=== PATIENT | male | born 1945 | race American Indian/Alaskan Native ===

== ENCOUNTER 2016-08-06 16:09 | Emergency (ER) | payer MEDICARE, MEDICAID ==
[2016-08-07] MEDS ORDERED: DECADRON IM STA (03:00)
[2016-08-07] MEDS ORDERED: TORADOL IM ONE (03:01)
--- NOTE | 2016-08-07 03:02 | Emergency Department Report ---
HPI - General Chief Complaint: Pain General Time Seen by Provider: 08/07/16 02:38 - HPI HPI: Patient here reports that he is having pain all over his joints. He said he has arthritis and he sees a pain specialist but he can no longer see that pain specialist. She was pain doctor does not take Medicare patient. Patient said he has a primary care physician. He said that he usually gets injection in his joints for his chronic arthritis. He is complaining the pain to knees, shoulders and back. Denies any injury. Pain is 10 out of 10 and feels achy. Reports that he takes oxycodone but because he doesn't have a pain doctor he does not have anymore and he would like to have some. Denies any fever or chills. Has any abdominal pain or urinary burning frequency or urgency. Denies any joint swelling or redness. ED Past Medical Hx - Past Medical History Previous Medical History?: Yes Hx Hypertension: Yes Hx Heart Attack/AMI: (coronary artery disease but no [place] or stent) Hx Liver Disease: Yes (hepatitis C) Hx Kidney Stones: Yes Hx HIV: No Additional medical history: HIGH CHOLESTEROL, "Blood clot behind heart" - Surgical History Past Surgical History?: Yes Hx Cholecystectomy: Yes Additional Surgical History: Hernia repair - Family History Family history: CAD/[place], hypertension - Social History Smoking Status: Current Every Day Smoker Substance Use Type: None - Medications Home Medications: Home Medications Medication Instructions Recorded Confirmed Last Taken Type Gabapentin 300 mg PO DAILY 07/11/13 03/06/15 03/05/15 History Oxybutynin [Ditropan] 5 mg PO DAILY 07/11/13 03/06/15 03/05/15 History Simvastatin 20 mg PO DAILY 07/11/13 03/06/15 03/05/15 History Bisacodyl [Dulcolax suppos] 10 mg RI QDAY PRN #30 supp.rect 03/06/15 Unknown Rx Clopidogrel [Plavix] 75 mg PO DAILY #30 tablet 03/06/15 Unknown Rx Indomethacin Sr (Nf) [Indocin Sr 75 mg PO DAILY #30 capsule 03/06/15 Unknown Rx (Nf)] Simvastatin [Zocor TAB] 20 mg PO QHS #30 tablet 03/06/15 Unknown Rx amLODIPine [Norvasc] 10 mg PO DAILY #30 tablet 03/06/15 Unknown Rx Oxycodone HCl/Acetaminophen 1 each PO Q8HR PRN #10 tablet 04/30/15 Unknown Rx [Percocet 10/325 mg] Lisinopril [Zestril TAB] 20 mg PO BID #60 tablet 11/20/15 Unknown Rx traMADol [Ultram] 50 mg PO Q6HR PRN #20 tablet 08/07/16 Unknown Rx ED Review of Systems ROS: Stated complaint: PAIN ALL OVER Other details as noted in HPI Comment: All other systems reviewed and negative Constitutional: denies: chills, fever Respiratory: no symptoms reported Cardiovascular: denies: chest pain, palpitations, edema, syncope Gastrointestinal: denies: abdominal pain, nausea, vomiting, diarrhea Genitourinary: denies: frequency, hematuria Musculoskeletal: back pain, arthralgia. denies: joint swelling Skin: denies: rash Neurological: denies: headache, weakness, numbness, paresthesias, confusion, abnormal gait, vertigo Physical Exam - Physical Exam Vital Signs: Vital Signs 08/06/16 18:20 Temperature 97.9 F Pulse Rate 57 L Respiratory 16 Rate Blood Pressure 129/83 O2 Sat by Pulse 100 Oximetry General: 71-year-old male well-nourished well-developed in no acute distress. Physical Exam: Head: Normocephalic atraumatic Neck: Supple, no C-spine tenderness, no tracheal deviation. Nontender to palpate. no adenopathy Eyes: Bilateral pupils equal and reactive to light, bilateral EOM intact. Bilateral sclera and conjunctiva without injection. Normal accommodation Lungs: Clear to auscultate bilaterally no rhonchi wheezes or rales. Normal work of breathing extremity; No CCE. +2 pulses. No neurovascular compromise. Cardiovascular: S1-S2, regular rate rhythm. No murmurs. Skin: clean Dry and intact no rash no lesions Psych: Normal mood and behavior MSK: Full range of motion to all extremity, no joint deformity noted. No swelling or redness noted to joints. Joints are nontender to palpate.. Back: Negative SLR bilaterally, no vertebral or paraspinal tenderness. Patient able to ambulate without any difficulties. No saddle anesthesia. Neurologic: GCS at 15, alert and oriented 3, speech is normal and fluid. Negative pronator drift. Normal reflexes. No Facial drooping. Gait is normal and bilateral hand senior storage administrator strong and equal. No motor or sensory deficit. ED Course Vital Signs 08/06/16 18:20 Temperature 97.9 F Pulse Rate 57 L Respiratory 16 Rate Blood Pressure 129/83 O2 Sat by Pulse 100 Oximetry - Reevaluation(s) Reevaluation #1: 08/07/16 03:10 Patient given Amalia 2 tablets emergency room along with Decadron 8 mg IM. I discussed with patient that I cannot give him narcotics for chronic pain and he will need to follow-up with his primary care physician to refer him to a pain doctor. ED Medical Decision Making - Medical Decision Making ED course: Patient with chronic pain from arthritis . I discussed with patient that he will need to follow-up with primary care physician to refer him to another pain specialist to manage his chronic pain from arthritis. Patient given Amalia 5/325 2 tablets by mouth in emergency room along with Decadron 8 mg IM. He was understanding of discharge instruction and discharged home with his fiance in stable condition. Prescription given for Ultram. Critical care attestation.: If time is entered above; I have spent that time in minutes in the direct care of this critically ill patient, excluding procedure time. ED Disposition Clinical Impression: Arthralgia of multiple sites, bilateral Back pain Qualifiers: Back pain location: low back pain Chronicity: chronic Back pain laterality: bilateral Sciatica presence: without sciatica Qualified Code(s): M54.5 - Low back pain; G89.29 - Other chronic pain Disposition: DISCHARGED TO HOME OR SELFCARE Is pt being admited?: No Does the pt Need Aspirin: No Condition: Stable Instructions: Chronic Back Pain (ED), Arthralgia (ED) Prescriptions: traMADol [Ultram] 50 mg PO Q6HR PRN #20 tablet PRN Reason: Pain Referrals: CHANDRIKA NICK MD [Primary Care Provider] - 2-3 Days Forms: Accompanied Note, Work/School Release Form(ED)
[2016-08-07] MEDS ORDERED: NORCO 5/325 PO ONE (03:04)
[2016-08-07 03:28] VITALS: BP 140/76
== END 2016-08-07 03:27 | disposition home or self-care (01) ==
LOC: ED 16:09
DX: M54.5 Low back pain (principal); G89.29 Other chronic pain; M25.50 Pain in unspecified joint; I10 Essential (primary) hypertension; E78.00 Pure hypercholesterolemia, unspecified; I25.10 Atherosclerotic heart disease of native coronary artery without angina pectoris; F17.200 Nicotine dependence, unspecified, uncomplicated; Z86.19 Personal history of other infectious and parasitic diseases; Z90.49 Acquired absence of other specified parts of digestive tract
CPT/HCPCS: 96372; 99282; J1100

== ENCOUNTER 2017-06-26 11:00 | Inpatient (IN) | payer MEDICARE, MEDICAID ==
--- NOTE | 2017-06-17 10:30 | Anesthesia Consultation ---
Anesthesia Consult and Med Hx Date of service: 06/17/17 - Airway Anesthetic Teeth Evaluation: Poor (not teeth at the top, denies loose teeth) ROM Head & Neck: Adequate Mental/Hyoid Distance: Adequate Mallampati Class: Class II Intubation Access Assessment: Probably Good - Pulmonary Exam CTA: Yes - Cardiac Exam Cardiac Exam: RRR - Pre-Operative Health Status ASA Pre-Surgery Classification: ASA3 Proposed Anesthetic Plan: General - Pulmonary Hx Smoking: Yes (/ PPD X 50 YRS) Hx Asthma: No Hx Respiratory Symptoms: No (hx of TB in 1988) COPD: No Hx Sleep Apnea: No (ANGELO PRE SCREEN HIGH RISK) - Cardiovascular System Hx Hypertension: Yes (SINCE 1975) Hx Heart Attack/AMI: No (had "blood clot in heart" 2011) - Central Nervous System CVA: Yes (x 2, 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
[2017-06-17 10:34] LABS: Basophils % (Auto) 0.6 % (0.0-1.8); Eosinophils % (Auto) 3.6 % (0.0-4.3); Hematocrit 37.2 % (35.5-45.6); Hemoglobin 13.1 gm/dl (11.8-15.2); Mean Corpuscular HGB Conc 35 % (32-34); Mean Corpuscular Hemoglobin 38 pg (28-32); Mean Corpuscular Volume 107 fl (84-94); Platelet Count 171 K/mm3 (140-440); Red Blood Count 3.48 M/mm3 (3.65-5.03); Red Cell Distribution Width 12.7 % (13.2-15.2); White Blood Count 7.8 K/mm3 (4.5-11.0)
[2017-06-17 10:52] LABS: Alanine Aminotransferase 13 units/L (7-56); Albumin 3.6 g/dL (3.9-5); Albumin/Globulin Ratio 1.1 %; Alkaline Phosphatase 66 units/L (35-129); Anion Gap 15 mmol/L; BUN/Creatinine Ratio 23; Blood Urea Nitrogen 21 mg/dL (9-20); Calcium 9.2 mg/dL (8.4-10.2); Carbon Dioxide 27 mmol/L (22-30); Chloride 103.3 mmol/L (98-107); Glucose 121 mg/dL (75-100); Potassium 3.6 mmol/L (3.6-5.0); Sodium 142 mmol/L (137-145); Total Protein 6.9 g/dL (6.3-8.2)
[~2017-06-26 11:00] MED LIST: ANCEF/STERILE WATER 2 GM/20 ML IV NR; NACL 0.9% 1000 ML 1,000 ML IV SCH; PEPCID PO NR
--- NOTE | 2017-06-26 13:18 | Anesthesia Day of Surgery ---
Anesthesia Day of Surgery - Day of Surgery Patient Examined: Yes Patient H&P Reviewed: Yes Patient is NPO: Yes Cardiac Clearance: Yes
[2017-06-26] MEDS ORDERED: DIPRIVAN 10 MG/ML IV ONE (13:41)
[2017-06-26] MEDS ORDERED: SUBLIMAZE ONE (13:42)
[2017-06-26] MEDS ORDERED: NEO SYNEPHRINE/NS Syringe(OR USE) IV ONE (14:00)
[2017-06-26] MEDS ORDERED: XYLOCAINE MPF 2% ONE (14:38)
[2017-06-26] MEDS ORDERED: ZOFRAN ONE (14:38)
[2017-06-26] MEDS ORDERED: AMBIEN PO PRN (14:43)
[2017-06-26] MEDS ORDERED: ZOFRAN IV PRN ×2 (14:43→15:29)
[2017-06-26] MEDS ORDERED: NORCO 5/325 PO PRN (14:43)
[2017-06-26] MEDS ORDERED: MORPHINE IV PRN (14:43)
--- NOTE | 2017-06-26 14:44 | Short Stay Summary ---
Short Stay Documentation Date of service: 06/26/17 - History H&P: obtained from office - Allergies and Medications Current Medications: Allergies aspirin Allergy (Verified 06/06/17 12:35) Vomiting Home Medications Medication Instructions Recorded Confirmed Last Taken Type Gabapentin 300 mg PO BID 07/11/13 06/26/17 06/25/17 History Clopidogrel [Plavix] 75 mg PO DAILY #30 tablet 03/06/15 06/26/17 1 Week Ago Rx ~06/19/17 Simvastatin [Zocor TAB] 20 mg PO QHS #30 tablet 03/06/15 06/26/17 06/26/17 Rx amLODIPine [Norvasc] 10 mg PO DAILY #30 tablet 03/06/15 06/26/17 06/26/17 Rx Lisinopril [Zestril TAB] 20 mg PO BID #60 tablet 11/20/15 06/26/17 06/26/17 Rx Atenolol [Tenormin] 25 mg PO DAILY 08/20/16 06/26/17 06/26/17 History ISOSORBIDE MONOnitrate [Imdur ER] 30 mg PO DAILY 08/20/16 06/26/17 06/26/17 History Lumigan 0.01% 1 drops OU QHS 08/20/16 06/26/17 06/25/17 History Mv-Mn/Iron/Folic Acid/Herb 190 1 each PO DAILY 08/20/16 06/26/17 06/25/17 History [Vitamin D3 Complete Caplet] Tamsulosin [Flomax] 0.4 mg PO QDAY 08/20/16 06/26/17 06/25/17 History traZODone [Desyrel] 100 mg PO QHS 08/20/16 06/26/17 06/25/17 History Cholecalciferol (Vitamin D3) 5,000 unit PO DAILY 06/17/17 06/26/17 06/25/17 History [Vitamin D3] Clotrimazole 1% [Lotrimin] 1 applic TP BID 06/17/17 06/26/17 06/25/17 History Oxycodone HCl [oxyCODONE 1 MG/ML 5 mg PO BID 06/17/17 06/26/17 06/25/17 History ORAL LIQ] Active Medications Cefazolin Sodium (Ancef/Sterile Water 2 Gm/20 Ml) 2 gm IV PREOP NR Stop: 06/26/17 23:59 Famotidine (Pepcid) 20 mg PO PREOP NR Stop: 06/26/17 23:59 Last Admin: 06/26/17 13:43 Dose: 20 mg Sodium Chloride (Nacl 0.9% 1000 Ml) 1,000 mls @ 75 mls/hr IV DIRECT ROBBIN Last Admin: 06/26/17 13:44 Dose: 75 mls/hr - Brief post op/procedure progress note Date of procedure: 06/26/17 Pre-op diagnosis: BPH Post-op diagnosis: same Procedure: cysto, TURP Anesthesia: GETA Surgeon: CLEO CHENEY Estimated blood loss: minimal Pathology: list (prostate chips) Specimen disposition: to lab Condition: stable - Hospital course Hospital course: [facility]vin & edmond on chart - Disposition Condition at discharge: Stable Disposition: [id number] TO HOME OR SELFCARE Short Stay Discharge Plan Follow up with: PAUL GALO MD [Primary Care Provider] - 7 Days
[2017-06-26] MEDS ORDERED: SORBITOL-MANNITOL IRRIG IR ONE (14:46)
[2017-06-26] MEDS ORDERED: NACL 0.9% IR ONE (14:46)
[2017-06-26] MEDS ORDERED: ANCEF/NS 1 GM/50 ML 1 GM/50 ML BAG IV SCH (15:00)
[2017-06-26] MEDS ORDERED: DILAUDID IV PRN (15:10)
[2017-06-26] MEDS: DILAUDID IV PRN ×2 (15:13→15:20)
[2017-06-26] MEDS ORDERED: DILAUDID ONE (15:14)
[2017-06-26] MEDS: MORPHINE IV PRN ×2 (15:26→15:43)
[2017-06-26] MEDS ORDERED: MORPHINE ONE ×2 (15:28→15:43)
[2017-06-26] MEDS ORDERED: NACL 0.9% 1,000 ML IR ONE (16:10)
--- NOTE | 2017-06-26 17:54 | Post Anesthesia Evaluation ---
- Post Anesthesia Evaluation Patient Participated: Yes Airway Patent: Yes Stable Respiratory Function: Yes Nausea/Vomiting: No Temp > 96.8F: Yes Pain Manageable: Yes Adequeate Hydration: Yes Anesthesia Complications: No
[2017-06-26] MEDS ORDERED: XALATAN 0.005% OU SCH (18:00)
--- NOTE | 2017-06-26 18:01 | Operative Report ---
PREOPERATIVE DIAGNOSIS: Bladder outlet obstruction, benign prostatic hypertrophy. POSTOPERATIVE DIAGNOSES: Bladder outlet obstruction, benign prostatic hypertrophy. PROCEDURE: Cystoscopy, bilateral retrograde pyelograms, transurethral resection of the prostate. SURGEON: Himanshu Lees MD ANESTHESIA: General. ESTIMATED BLOOD LOSS: Minimal. FLUIDS: Crystalloid. COMPLICATIONS: No complications. INDICATIONS: This patient is a 71-year-old gentleman seen in the office for bladder outlet obstruction, is placed on Flomax with some improvement of his symptoms. He underwent urodynamic testing, which revealed a peak flow of 8 mL a second consistent with obstruction. We discussed options. The patient agreed to proceed with surgical intervention. DESCRIPTION OF PROCEDURE: The patient was taken to the operative suite, placed in supine position. After adequate general anesthesia, placed in a dorsal lithotomy position, prepped and draped in a sterile fashion. Pancystourethroscopy was performed with a 22 [place] Storz cystoscope. No acute bladder pathology. His prostate displayed mild to moderate trilobar obstruction. No bladder tumors or stones could be appreciated. Using a 27[place] resectoscope with cutting and coag of 160 of 60, transurethral resection of the prostate was performed in a systematic fashion. Taken down the median lobe and the right and left lateral lobes respectively. Chips were evacuated out with the Zimbra evacuator. Adequate hemostasis was achieved. Bilateral retrograde pyelograms were obtained with an 8 [place] Napier catheter and 8 mL of contrast. No filling defects or obstruction. A 24 [place] 3-way catheter was placed. The patient tolerated the procedure well, irrigated well and was taken to recovery room in stable condition. JOB# [id number] [facility]
[2017-06-26] MEDS: LOTRIMIN TP SCH ×2 (18:15→21:47)
[2017-06-26] MEDS: ZESTRIL PO SCH (21:28)
[2017-06-26] MEDS: ROXICODONE PO SCH (21:28)
[2017-06-26] MEDS: NEURONTIN PO SCH (21:30)
[2017-06-26] MEDS: ceFAZolin 1 GM in NACL 0.9% 20 ML IV SCH (21:34)
[2017-06-26] MEDS: LACTATED RINGERS 1,000 ML IV SCH (21:51)
[2017-06-26] MEDS ORDERED: DESYREL PO SCH (22:00)
[2017-06-26] MEDS ORDERED: NON-FORMULARY (Simvastatin 20 MG) PO SCH (22:00)
[2017-06-26] MEDS ORDERED: PRAVACHOL PO SCH (22:00)
[2017-06-26] MEDS ORDERED: LUMIGAN 0.01% OU SCH (22:00)
[2017-06-26] MEDS ORDERED: OXYCODONE HCL 5 MG PO SCH (22:00)
[2017-06-26] MEDS: NACL 0.9% IR SCH (23:38)
[2017-06-27] MEDS: NACL 0.9% IR SCH ×2 (00:15→04:25)
[2017-06-27 05:54] LABS: Basophils % (Auto) 0.3 % (0.0-1.8); Eosinophils % (Auto) 3.8 % (0.0-4.3); Hematocrit 37.6 % (35.5-45.6); Hemoglobin 12.9 gm/dl (11.8-15.2); Mean Corpuscular HGB Conc 34 % (32-34); Mean Corpuscular Hemoglobin 37 pg (28-32); Mean Corpuscular Volume 107 fl (84-94); Platelet Count 169 K/mm3 (140-440); Red Blood Count 3.53 M/mm3 (3.65-5.03); Red Cell Distribution Width 12.6 % (13.2-15.2); White Blood Count 8.6 K/mm3 (4.5-11.0)
[2017-06-27] MEDS: LACTATED RINGERS 1,000 ML IV SCH (06:08)
[2017-06-27] MEDS: ceFAZolin 1 GM in NACL 0.9% 20 ML IV SCH (06:12)
[2017-06-27 06:15] LABS: Anion Gap 15 mmol/L; BUN/Creatinine Ratio 20; Blood Urea Nitrogen 18 mg/dL (9-20); Calcium 8.7 mg/dL (8.4-10.2); Carbon Dioxide 29 mmol/L (22-30); Chloride 100.8 mmol/L (98-107); Glucose 91 mg/dL (75-100); Potassium 3.6 mmol/L (3.6-5.0); Sodium 141 mmol/L (137-145)
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
--- NOTE | 2017-06-27 09:29 | Consultation ---
History of Present Illness - Reason for Consult Consult date: 06/27/17 medical management Requesting physician: CLEO CHENEY - History of Present Illness s/p TURP doing well Past History Past Medical History: CAD, hypertension, hyperlipidemia Past Surgical History: TURP Social history: no significant social history, lives with family, full code Family history: hypertension Medications and Allergies Allergies Allergy/AdvReac Type Severity Reaction Status Date / Time aspirin Allergy Vomiting Verified 06/06/17 12:35 Home Medications Medication Instructions Recorded Confirmed Last Taken Type Gabapentin 300 mg PO BID 07/11/13 06/26/17 06/25/17 History Clopidogrel [Plavix] 75 mg PO DAILY #30 tablet 03/06/15 06/26/17 1 Week Ago Rx ~06/19/17 Simvastatin [Zocor TAB] 20 mg PO QHS #30 tablet 03/06/15 06/26/17 06/26/17 Rx amLODIPine [Norvasc] 10 mg PO DAILY #30 tablet 03/06/15 06/26/17 06/26/17 Rx Lisinopril [Zestril TAB] 20 mg PO BID #60 tablet 11/20/15 06/26/17 06/26/17 Rx Atenolol [Tenormin] 25 mg PO DAILY 08/20/16 06/26/17 06/26/17 History ISOSORBIDE MONOnitrate [Imdur ER] 30 mg PO DAILY 08/20/16 06/26/17 06/26/17 History Lumigan 0.01% 1 drops OU QHS 08/20/16 06/26/17 06/25/17 History Mv-Mn/Iron/Folic Acid/Herb 190 1 each PO DAILY 08/20/16 06/26/17 06/25/17 History [Vitamin D3 Complete Caplet] Tamsulosin [Flomax] 0.4 mg PO QDAY 08/20/16 06/26/17 06/25/17 History traZODone [Desyrel] 100 mg PO QHS 08/20/16 06/26/17 06/25/17 History Cholecalciferol (Vitamin D3) 5,000 unit PO DAILY 06/17/17 06/26/17 06/25/17 History [Vitamin D3] Clotrimazole 1% [Lotrimin] 1 applic TP BID 06/17/17 06/26/1717 History Oxycodone HCl [oxyCODONE 1 MG/ML 5 mg PO BID 06/17/17 06/26/17 06/25/17 History ORAL LIQ] Active Meds: Active Medications Acetaminophen/Hydrocodone Bitart ([place] 5/325) 2 each PO Q4H PRN PRN Reason: Pain, Moderate (4-6) Amlodipine Besylate (Norvasc) 10 mg PO DAILY [facility] Atenolol (Tenormin) 25 mg PO DAILY [facility] Cholecalciferol (Vitamin D3) 5,000 unit PO QDAY [facility] Clotrimazole (Lotrimin) 1 applic TP BID [facility] Last Admin: 06/26/17 21:47 Dose: Not Given Gabapentin (Neurontin) 300 mg PO BID [facility] Last Admin: 06/26/17 21:30 Dose: 300 mg Sodium Chloride (Nacl 0.9% 1000 Ml) 1,000 mls @ 75 mls/hr IV DIRECT [facility] Last Admin: 06/26/17 13:44 Dose: 75 mls/hr Lactated Ringer's (Lactated Ringers) 1,000 mls @ 100 mls/hr IV DIRECT [facility] Last Admin: 06/27/17 06:08 Dose: 100 mls/hr Isosorbide Mononitrate (Imdur) 30 mg PO DAILY [facility] Latanoprost (Xalatan 0.005%) 1 drops OU QPM [facility] Last Admin: 06/26/17 18:14 Dose: Not Given Lisinopril (Zestril) 20 mg PO BID [facility] Last Admin: 06/26/17 21:28 Dose: 20 mg Morphine Sulfate (Morphine) 2 mg IV Q4H PRN PRN Reason: Pain, Moderate (4-6) Morphine Sulfate (Morphine) 4 mg IV Q10MIN PRN PRN Reason: Pain , Severe (7-10) Last Admin: 06/26/17 15:43 Dose: 4 mg Ondansetron HCl (Zofran) 4 mg IV Q8H PRN PRN Reason: Nausea And Vomiting Ondansetron HCl (Zofran) 4 mg IV ONCE PRN PRN Reason: Nausea And Vomiting Oxycodone HCl (Roxicodone) 5 mg PO BID [facility] Last Admin: 06/26/17 21:28 Dose: 5 mg Pravastatin Sodium (Pravachol) 40 mg PO QHS [facility] Last Admin: 06/26/17 21:30 Dose: 40 mg Sodium Chloride (Nacl 0.9%) 2,000 ml IR DIRECT [facility] Last Admin: 06/27/17 04:25 Dose: 2,000 ml Trazodone HCl (Desyrel) 100 mg PO QHS [facility] Last Admin: 06/26/17 21:30 Dose: 100 mg Zolpidem Tartrate (Ambien) 5 mg PO QHS PRN PRN Reason: Sleep Review of Systems All systems: negative Exam - Constitutional Vitals: Temp Pulse Resp BP Pulse Ox 99.1 F 70 18 105/57 96 06/27/17 08:01 06/27/17 08:01 06/27/17 08:01 06/27/17 08:01 06/27/17 08:01 General appearance: Present: no acute distress, well-nourished - EENT Eyes: Present: PERRL ENT: hearing intact, clear oral mucosa - Neck Neck: Present: supple, normal ROM - Respiratory Respiratory effort: normal Respiratory: bilateral: CTA - Cardiovascular Heart Sounds: Present: S1 & S2. Absent: rub, click - Extremities Extremities: pulses symmetrical, No edema Peripheral Pulses: within normal limits - Abdominal General gastrointestinal: Present: soft, non-tender, non-distended, normal bowel sounds Male genitourinary: Present: normal - Integumentary Integumentary: Present: clear, warm, dry - Musculoskeletal Musculoskeletal: gait normal, strength equal bilaterally - Psychiatric Psychiatric: appropriate mood/affect, intact judgment & insight - Neurologic Neurologic: CNII-XII intact, moves all extremities Results - Labs CBC & Chem 7: 06/27/17 04:26 06/27/17 04:26 Labs: Abnormal lab results 06/27/17 Range/Units 04:26 RBC 3.53 L (3.65-5.03) M/mm3 MCV 107 H (84-94) fl MCH 37 H (28-32) pg RDW 12.6 L (13.2-15.2) % Person % (Auto) 11.4 H (0.0-7.3) % Person # 1.0 H (0.0-0.8) K/mm3 Assessment and Plan - Patient Problems (1) S/P TURP Current Visit: Yes Status: Acute Plan to address problem: post op doing well (2) CAD (coronary artery disease), [place] coronary artery Current Visit: No Status: Chronic Qualifiers: [place] vs. transplanted heart: [place] heart Associated angina: without angina Qualified Code(s): I25.10 - Atherosclerotic heart disease of [place] coronary artery without angina pectoris Plan to address problem: Cont plavix and Isosorbide (3) HLD (hyperlipidemia) Current Visit: No Status: Chronic Qualifiers: Hyperlipidemia type: mixed hyperlipidemia Qualified Code(s): E78.2 - Mixed hyperlipidemia Plan to address problem: Cont statins (4) HTN (hypertension) Current Visit: Yes Status: Chronic Qualifiers: Hypertension type: essential hypertension Qualified Code(s): I10 - Essential (primary) hypertension Plan to address problem: Cont antihypertensives
[2017-06-27] MEDS: NEURONTIN PO SCH (09:59)
[2017-06-27] MEDS: LOTRIMIN TP SCH (09:59)
[2017-06-27] MEDS ORDERED: VITAMIN D3 PO SCH (10:00)
[2017-06-27] MEDS ORDERED: NORVASC PO SCH (10:00)
[2017-06-27] MEDS ORDERED: HERB PO SCH (10:00)
[2017-06-27] MEDS ORDERED: NON-FORMULARY (Cholecalciferol (Vitamin D3) [Vitamin D3] 5,000 UNIT) PO SCH (10:00)
[2017-06-27] MEDS ORDERED: TENORMIN PO SCH (10:00)
[2017-06-27] MEDS ORDERED: FOLIC ACID PO SCH (10:00)
[2017-06-27] MEDS ORDERED: MV MN PO SCH (10:00)
[2017-06-27] MEDS ORDERED: IRON PO SCH (10:00)
[2017-06-27] MEDS ORDERED: IMDUR PO SCH (10:00)
[2017-06-27] MEDS: ZESTRIL PO SCH (10:01)
[2017-06-27] MEDS: ROXICODONE PO SCH (10:01)
--- NOTE | 2017-06-27 13:03 | Progress Note ---
Assessment and Plan urine clear draining well home with catheter Subjective Date of service: 06/27/17 Principal diagnosis: BPH Objective - Constitutional Vitals: Vital Signs - 12hr 06/27/17 06/27/17 06/27/17 04:56 08:01 09:59 Temperature 97.2 F L 99.1 F Pulse Rate 73 70 67 Respiratory 16 18 Rate Blood Pressure 105/57 105/57 Blood Pressure 104/61 [Left] O2 Sat by Pulse 100 96 Oximetry General appearance: Present: no acute distress - Respiratory Respiratory effort: normal Extremities: no ischemia - Gastrointestinal General gastrointestinal: Present: soft, non-tender - Labs CBC & Chem 7: 06/27/17 04:26 06/27/17 04:26 Labs: Abnormal lab results 06/27/17 Range/Units 04:26 RBC 3.53 L (3.65-5.03) M/mm3 MCV 107 H (84-94) fl MCH 37 H (28-32) pg RDW 12.6 L (13.2-15.2) % [place] % (Auto) 11.4 H (0.0-7.3) % [place] # 1.0 H (0.0-0.8) K/mm3
[2017-06-27 13:04] VITALS: BP 103/52
--- NOTE | 2017-06-27 13:04 | Discharge Summary ---
Short Stay Discharge Plan Activity: other (no straining ) Weight Bearing Status: Full Weight Bearing Diet: regular, low fat, low cholesterol, low salt Special Instructions: other (inc fluids ) Durable Medical Equipment Needed Upon Discharge: other (teach zapata care ) Follow up with: PAUL GALO MD [Primary Care Provider] - 7 Days CLEO CHENEY MD [Staff Physician] - 7 Days
== END 2017-06-27 15:36 | disposition home or self-care (01) | DRG 713 ==
LOC: OR 11:00 → 3B-SURG 14:44
PROVIDERS: ADMIT Urology; ATTEND Urology
PROC: 0VT08ZZ Resection of Prostate, Via Natural or Artificial Opening Endoscopic (ICD-10-PCS; principal; 2017-06-26)
PROC: BT141ZZ Fluoroscopy of Kidneys, Ureters and Bladder using Low Osmolar Contrast (ICD-10-PCS; 2017-06-26)
DX: N40.1 Benign prostatic hyperplasia with lower urinary tract symptoms (principal); N13.8 Other obstructive and reflux uropathy; Z88.6 Allergy status to analgesic agent; Z87.891 Personal history of nicotine dependence; Z86.73 Personal history of transient ischemic attack (TIA), and cerebral infarction without residual deficits; K21.9 Gastro-esophageal reflux disease without esophagitis; B19.20 Unspecified viral hepatitis C without hepatic coma; H40.9 Unspecified glaucoma; Z79.899 Other long term (current) drug therapy; K74.60 Unspecified cirrhosis of liver; I25.10 Atherosclerotic heart disease of native coronary artery without angina pectoris; E78.5 Hyperlipidemia, unspecified; I10 Essential (primary) hypertension; Z82.49 Family history of ischemic heart disease and other diseases of the circulatory system
CPT/HCPCS: 36415; 74420; 80048; 80053; 85025; 85610; 85730; 86850; 86900; 86901; A4217; A9270-GY; J0690; J1170; J2270; J2370; J2405; J2704; J3010; J7030; J7120; Q9967

== ENCOUNTER 2017-06-28 06:16 | Emergency (ER) | payer MEDICARE ==
[2017-06-28] MEDS ORDERED: ZOFRAN ODT PO ONE (07:41)
[2017-06-28] MEDS ORDERED: MORPHINE IM ONE (07:41)
[2017-06-28 08:49] LABS: Bilirubin,Urine NEG (Negative); Blood,Urine LG (Negative); Ketones,Urine NEG (Negative); Leukocyte Esterase,Urine SM (Negative); Nitrite,Urine NEG (Negative)
--- NOTE | 2017-06-28 09:47 | Emergency Department Report ---
HPI - General Chief Complaint: Urogenital-Male Time Seen by Provider: 06/28/17 07:24 - HPI HPI: The patient is a 71-year-old male who presents for evaluation of lower abdominal and pelvic pain. The patient has a history of TURP procedure yesterday and Baker catheter placement. He complains of moderate in severity, 5 /10 pain for the past one day, constant, cramping and pressure-like in quality. He also reports constant mild hematuria since the procedure. The patient denies fever, chills, night sweats, diarrhea, blood in the stool, dark tarry stool, dysuria, flank pain, genital discharge, inability to pass flatus. ED Past Medical Hx - Past Medical History Previous Medical History?: Yes Hx Hypertension: Yes Hx Heart Attack/AMI: No (had "blood clot in heart" 2011) Hx Deep Vein Thrombosis: No Hx GERD: Yes Hx Liver Disease: Yes (hepatitis C) Hx Renal Disease: No (stones, BPH) Hx Arthritis: Yes Hx Kidney Stones: Yes Hx Asthma: No Hx COPD: No Hx Tuberculosis: Yes (POSITIVE SKIN TEST,RECEIVED [place] 1988) Hx HIV: No Additional medical history: HIGH CHOLESTEROL, "Blood clot behind heart" - Surgical History Past Surgical History?: Yes Hx Cholecystectomy: Yes Additional Surgical History: Hernia repair - Social History Smoking Status: Current Every Day Smoker Substance Use Type: None - Medications Home Medications: Home Medications Medication Instructions Recorded Confirmed Last Taken Type Gabapentin 300 mg PO BID 07/11/13 06/26/17 06/25/17 History Clopidogrel [Plavix] 75 mg PO DAILY #30 tablet 03/06/15 06/26/17 1 Week Ago Rx ~06/19/17 Simvastatin [Zocor TAB] 20 mg PO QHS #30 tablet 03/06/15 06/26/17 06/26/17 Rx amLODIPine [Norvasc] 10 mg PO DAILY #30 tablet 03/06/15 06/26/17 06/26/17 Rx Lisinopril [Zestril TAB] 20 mg PO BID #60 tablet 11/20/15 06/26/17 06/26/17 Rx Atenolol [Tenormin] 25 mg PO DAILY 08/20/16 06/26/17 06/26/17 History ISOSORBIDE MONOnitrate [Imdur ER] 30 mg PO DAILY 08/20/16 06/26/17 06/26/17 History Lumigan 0.01% 1 drops OU QHS 08/20/16 06/26/17 06/25/17 History Mv-Mn/Iron/Folic Acid/Herb 190 1 each PO DAILY 08/20/16 06/26/17 06/25/17 History [Vitamin D3 Complete Caplet] Tamsulosin [Flomax] 0.4 mg PO QDAY 08/20/16 06/26/17 06/25/17 History traZODone [Desyrel] 100 mg PO QHS 08/20/16 06/26/17 06/25/17 History Cholecalciferol (Vitamin D3) 5,000 unit PO DAILY 06/17/17 06/26/17 06/25/17 History [Vitamin D3] Clotrimazole 1% [Lotrimin] 1 applic TP BID 06/17/17 06/26/17 06/25/17 History Oxycodone HCl [oxyCODONE 1 MG/ML 5 mg PO BID 06/17/17 06/26/17 06/25/17 History ORAL LIQ] HYDROcodone/APAP 7.5-325 [[place] 1 each PO Q8HR PRN #10 tablet 06/28/17 Unknown Rx 7.5-325 mg TAB] ED Review of Systems ROS: Stated complaint: PAIN FROM SURGERY SITE Other details as noted in HPI Constitutional: denies: fever ENT: denies: throat or neck pain Respiratory: denies: cough, shortness of breath Cardiovascular: denies: chest pain Endocrine: denies unexplained weight loss or gain Gastrointestinal: reports abdominal pain, nausea Genitourinary: reports hematuria denies: dysuria Musculoskeletal: denies: leg swelling Skin: denies: rash Neurological: denies: headache Hematological/Lymphatic: denies: easy bleeding or easy bruising Psych: denies sadness or hopelessness Physical Exam - Physical Exam Vital Signs: Vital Signs 06/28/17 06/28/17 06/28/17 06:28 07:28 07:41 Temperature 98.3 F 98.2 F Pulse Rate 97 H 96 H Respiratory 18 18 22 Rate Blood Pressure 113/73 Blood Pressure 125/68 [Left] O2 Sat by Pulse 96 97 97 Oximetry Physical Exam: General: well-nourished, well-developed, no acute distress Head: Normocephalic, atraumatic Eyes: normal sclera ENT: Mucous membranes are pink and moist Neck: trachea midline, neck supple, No neck stiffness, no cervical adenopathy Respiratory: Breath sounds equal bilaterally, no wheezing, rales, or rhonchi Cardio: S1 and S2 present, no murmurs, rubs, gallops, capillary refill is brisk Abdomen: Normoactive bowel sounds, soft abdomen, suprapubic tenderness to palpation present, no rigidity, no guarding or rebound tenderness Musc: No pitting edema Skin: No rash Neuro: no facial drooping, normal speech Psych: Normal affect ED Course Vital Signs 06/28/17 06/28/17 06/28/17 06:28 07:28 07:41 Temperature 98.3 F 98.2 F Pulse Rate 97 H 96 H Respiratory 18 18 22 Rate Blood Pressure 113/73 Blood Pressure 125/68 [Left] O2 Sat by Pulse 96 97 97 Oximetry ED Medical Decision Making - Medical Decision Making The patient was seen and examined by myself. The patient is placed on a night monitor and continuous pulse ox. On initial evaluation, the patient was found to be in no distress. Evaluation orders are placed. The patient is given pain medicine. Lab results were non-concerning including urinalysis negative for findings concerning for urinary tract infection. The patient was reevaluated and reported that their symptoms were markedly improved. The patient is stable for discharge with outpatient follow-up. The patient is given follow-up and return instructions. The patient expressed understanding and agreed with the plan. The patient is discharged in stable condition. Critical care attestation.: If time is entered above; I have spent that time in minutes in the direct care of this critically ill patient, excluding procedure time. ED Disposition Clinical Impression: Hematuria, Acute suprapubic pain, Pelvic pain in male Disposition: - TO HOME OR SELFCARE Is pt being admited?: No Does the pt Need Aspirin: No Condition: Stable Instructions: Benign Prostatic Hypertrophy (ED), Baker Catheter Placement and Care (ED), Acute Hematuria (ED) Prescriptions: HYDROcodone/APAP 7.5-325 [[place] 7.5-325 mg TAB] 1 each PO Q8HR PRN #10 tablet PRN Reason: Pain Referrals: LONI BRANDON MD [Staff Physician] - 3-5 Days [facility] [Outside] - 3-5 Days Time of Disposition: 09:47
[2017-06-28 10:10] VITALS: BP 120/70
== END 2017-06-28 10:10 | disposition home or self-care (01) ==
LOC: ED 06:16
DX: R31.9 Hematuria, unspecified (principal); R10.30 Lower abdominal pain, unspecified; F17.200 Nicotine dependence, unspecified, uncomplicated; K21.9 Gastro-esophageal reflux disease without esophagitis; I10 Essential (primary) hypertension; Z86.19 Personal history of other infectious and parasitic diseases; N40.0 Benign prostatic hyperplasia without lower urinary tract symptoms; Z88.6 Allergy status to analgesic agent
CPT/HCPCS: 81001; 87086; 96372; 99284; J2270

== ENCOUNTER 2017-10-04 09:38 | Outpatient (CLI) | payer MEDICARE ==
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
== END 2017-10-04 09:39 | disposition home or self-care (01) ==
LOC: CT 09:38
PROVIDERS: ATTEND Urology
DX: M41.86 Other forms of scoliosis, lumbar region (principal); M47.896 Other spondylosis, lumbar region; M16.0 Bilateral primary osteoarthritis of hip; J98.11 Atelectasis; I25.10 Atherosclerotic heart disease of native coronary artery without angina pectoris; J84.10 Pulmonary fibrosis, unspecified; I70.0 Atherosclerosis of aorta; Z90.49 Acquired absence of other specified parts of digestive tract
CPT/HCPCS: 74176

== ENCOUNTER 2017-10-25 10:48 | Outpatient (CLI) | payer MEDICARE ==
--- NOTE | 2017-10-25 13:44 | XRay Report ---
RIGHT KNEE RADIOGRAPHS INDICATION: Chronic pain. COMPARISON: 04/30/2015. FINDINGS: AP, lateral and oblique right knee radiographs, 5 images again demonstrate intact articulation with medial and patellofemoral compartment narrowing and degenerative spurring. Mild superior and inferior patellar articular pole spurring as well. Superior patellar enthesophyte. No large suprapatellar effusion at this time. Atherosclerotic vascular calcifications posteriorly. CONCLUSION: Right knee osteoarthritic changes again noted, as described. Thank you for the opportunity to participate in this patient's care.
--- NOTE | 2017-10-26 00:10 | XRay Report ---
FINAL REPORT PROCEDURE: XR SHOULDER BILAT 2+V TECHNIQUE: BILATERAL shoulder radiographs including AP views in internal and external rotation. HISTORY: CHRONIC PAIN COMPARISON: No prior studies are available for comparison. FINDINGS: Fracture(s) and/or Dislocation(s): No evidence of acute fracture or dislocation. Joint space(s): Moderate narrowing of the joint spaces bilaterally. Mild spur formation off the acromioclavicular joint and the glenoid fossa bilaterally. Soft tissues: Normal. Bone mineralization: Normal. Foreign bodies: None. IMPRESSION: There is no evidence of an acute fracture of the shoulders. Mild bilateral shoulder arthritis.
== END 2017-10-25 10:49 | disposition home or self-care (01) ==
LOC: XRAY 10:48
DX: M19.012 Primary osteoarthritis, left shoulder (principal); M19.011 Primary osteoarthritis, right shoulder; M17.11 Unilateral primary osteoarthritis, right knee; M25.812 Other specified joint disorders, left shoulder; M25.811 Other specified joint disorders, right shoulder; F11.90 Opioid use, unspecified, uncomplicated; M54.9 Dorsalgia, unspecified; F17.200 Nicotine dependence, unspecified, uncomplicated; E78.00 Pure hypercholesterolemia, unspecified; I10 Essential (primary) hypertension

== ENCOUNTER 2017-12-11 13:23 | Outpatient (CLI) | payer MEDICARE ==
--- NOTE | 2017-12-11 14:29 | XRay Report ---
Lumbar spine 2 views: History: Chronic pain. Findings: Normal height of vertebral bodies. Decrease in height of intravertebral disc spaces. Sclerotic articular surfaces with peripheral osteophytes suggesting degenerative changes. No fracture. No paravertebral mass. Impression: Degenerative lumbar spine.
--- NOTE | 2017-12-11 14:31 | XRay Report ---
Bilateral shoulder: History: Chronic pain. Findings: Severe arthritic changes a.c. joint bilaterally with [id number] arthritic changes glenohumeral joint bilaterally. No fracture or dislocation. There is faint calcification noted adjacent to the posterior greater tuberosity right humerus. Decrease in acromiohumeral space bilaterally. Impression: Bilateral arthritic changes a.c. joint and glenohumeral joint with decrease in acromiohumeral space probably related to chronic impingement and arthritis.
--- NOTE | 2017-12-11 14:32 | XRay Report ---
Right knee 3 views: History: Chronic pain. Findings: Narrowing of the medial and patellofemoral compartment knee joint. Sclerotic articular surfaces with peripheral osteophytes suggesting degenerative changes. Spur anterior patella. No joint effusion. Impression: Severe degenerative changes medial and patellofemoral compartment knee joint.
== END 2017-12-11 13:24 | disposition home or self-care (01) ==
LOC: XRAY 13:23
PROVIDERS: ATTEND Pain Medicine Interventional Pain Medicine
DX: Z09 Encounter for follow-up examination after completed treatment for conditions other than malignant neoplasm (principal); M47.896 Other spondylosis, lumbar region; M17.11 Unilateral primary osteoarthritis, right knee; M76.51 Patellar tendinitis, right knee; M19.012 Primary osteoarthritis, left shoulder; M19.011 Primary osteoarthritis, right shoulder; F11.90 Opioid use, unspecified, uncomplicated
CPT/HCPCS: 72100

== ENCOUNTER 2018-08-03 04:30 | Emergency (ER) | payer MEDICARE ==
[2018-08-03 05:41] VITALS: BP 94/53
== END 2018-08-03 06:30 | disposition left against medical advice (07) ==
LOC: ED 04:30
DX: R07.89 Other chest pain (principal); Z53.21 Procedure and treatment not carried out due to patient leaving prior to being seen by health care provider
CPT/HCPCS: 93005; 93010

== ENCOUNTER 2018-09-21 07:45 | Emergency (ER) | payer MEDICARE ==
[2018-09-21] MEDS ORDERED: NACL 0.9% 1000 ML 1,000 ML IV ONE ×2 (08:08→10:34)
[2018-09-21] MEDS ORDERED: ZOFRAN IV ONE (08:08)
--- NOTE | 2018-09-21 08:14 | Emergency Department Report ---
ED General Adult HPI - General Chief complaint: Weakness Stated complaint: WEAKNESS Time Seen by Provider: 09/21/18 07:58 Source: EMS Mode of arrival: Stretcher Limitations: Physical Limitation - History of Present Illness Initial comments: Patient is 73 years old male with history of hypertension, coronary artery disease, GERD and arthritis. Patient presented to the ER via EMS stating that he is feeling generalized weakness started this morning. Patient stated that he took extra dose of his Neurontin. She stated that he usually take one tablet t hat he took 2 tablets last night. EMS reported that initial blood pressure was 88/46. Patient denied any chest pain, shortness of breath, abdominal pain, nausea or vomiting. Severity scale (0 -10): 0 - Related Data Home Medications Medication Instructions Recorded Confirmed Last Taken Gabapentin 300 mg PO BID 07/11/13 09/21/18 09/20/18 Atenolol [Tenormin] 25 mg PO DAILY 08/20/16 09/21/18 09/20/18 ISOSORBIDE MONOnitrate [Imdur ER] 30 mg PO DAILY 08/20/16 09/21/18 09/20/18 Lumigan 0.01% 1 drops OU QHS 08/20/16 09/21/18 06/25/17 traZODone [Desyrel] 100 mg PO QHS 08/20/16 09/21/18 09/20/18 Cholecalciferol (Vitamin D3) 5,000 unit PO DAILY 06/17/17 09/21/18 09/20/18 [Vitamin D3] Clotrimazole 1% [Lotrimin] 1 applic TP BID 06/17/17 09/21/18 06/25/17 Losartan-Hctz 50-12.5 mg Tab 1 tab PO DAILY 09/21/18 09/21/18 09/20/18 amLODIPine [Norvasc] 5 mg PO DAILY 09/21/18 09/21/18 09/20/18 oxyCODONE /ACETAMINOPHEN 10 mg PO PRN 09/21/18 09/21/18 Unknown Previous Rx's Medication Instructions Recorded Last Taken Type Clopidogrel [Plavix] 75 mg PO DAILY #30 tablet 03/06/15 09/20/18 Rx Simvastatin (Nf) [Zocor TAB] 20 mg PO QHS #30 tablet 03/06/15 09/20/18 Rx Allergies Allergy/AdvReac Type Severity Reaction Status Date / Time aspirin Allergy Vomiting Verified 06/06/17 12:35 ED Review of Systems ROS: Stated complaint: WEAKNESS Other details as noted in HPI Comment: All other systems reviewed and negative Constitutional: denies: chills, fever Respiratory: denies: cough, orthopnea, shortness of breath, SOB with exertion, SOB at rest, wheezing Cardiovascular: denies: chest pain, palpitations Gastrointestinal: denies: abdominal pain, nausea, vomiting, diarrhea, constipat ion, hematemesis, melena, hematochezia Musculoskeletal: denies: back pain Neurological: weakness (generalized). denies: headache, numbness, paresthesias, confusion, abnormal gait ED Past Medical Hx - Past Medical History Previous Medical History?: Yes Hx Hypertension: Yes Hx Heart Attack/AMI: No (had "blood clot in heart" 2011) Hx Deep Vein Thrombosis: No Hx GERD: Yes Hx Liver Disease: Yes (hepatitis C) Hx Renal Disease: No (stones, BPH) Hx Arthritis: Yes Hx Kidney Stones: Yes Hx Asthma: No Hx COPD: No Hx Tuberculosis: Yes (POSITIVE SKIN TEST,RECEIVED [place] 1988) Hx HIV: No Additional medical history: HIGH CHOLESTEROL, "Blood clot behind heart" - Surgical History Past Surgical History?: Yes Hx Cholecystectomy: Yes Additional Surgical History: Hernia repair - Social History Smoking Status: Current Every Day Smoker Substance Use Type: None - Medications Home Medications: Home Medications Medication Instructions Recorded Confirmed Last Taken Type Gabapentin 300 mg PO BID 07/11/13 09/21/18 09/20/18 History Clopidogrel [Plavix] 75 mg PO DAILY #30 tablet 03/06/15 09/21/18 09/20/18 Rx Simvastatin (Nf) [Zocor TAB] 20 mg PO QHS #30 tablet 03/06/15 09/21/18 09/20/18 Rx Atenolol [Tenormin] 25 mg PO DAILY 08/20/16 09/21/18 09/20/18 History ISOSORBIDE MONOnitrate [Imdur ER] 30 mg PO DAILY 08/20/16 09/21/18 09/20/18 History Lumigan 0.01% 1 drops OU QHS 08/20/16 09/21/18 06/25/17 History traZODone [Desyrel] 100 mg PO QHS 08/20/16 09/21/18 09/20/18 History Cholecalciferol (Vitamin D3) 5,000 unit PO DAILY 06/17/17 09/21/18 09/20/18 H istory [Vitamin D3] Clotrimazole 1% [Lotrimin] 1 applic TP BID 06/17/17 09/21/18 06/25/17 History Losartan-Hctz 50-12.5 mg Tab 1 tab PO DAILY 09/21/18 09/21/18 09/20/18 History amLODIPine [Norvasc] 5 mg PO DAILY 09/21/18 09/21/18 09/20/18 History oxyCODONE /ACETAMINOPHEN 10 mg PO PRN 09/21/18 09/21/18 Unknown History ED Physical Exam - General Limitations: No Limitations, Physical Limitation General appearance: alert, in no apparent distress - Head Head exam: Present: atraumatic, normocephalic, normal inspection - Eye Eye exam: Present: normal appearance, PERRL - ENT ENT exam: Present: normal exam, normal orophraynx, mucous membranes moist - Neck Neck exam: Present: normal inspection, full ROM. Absent: tenderness, meningismus, lymphadenopathy, thyromegaly - Respiratory Respiratory exam: Present: normal lung sounds bilaterally. Absent: respiratory distress, wheezes, rales, rhonchi, chest wall tenderness, accessory muscle use, decreased breath sounds, prolonged expiratory - Cardiovascular Cardiovascular Exam: Present: regular rate, normal rhythm, normal heart sounds - GI/Abdominal GI/Abdominal exam: Present: soft, normal bowel sounds. Absent: distended, tenderness, guarding, rebound, rigid, organomegaly, mass, bruit, pulsatile mass, hernia - Extremities Exam Extremities exam: Present: normal inspection, full ROM, normal capillary refill. Absent: pedal edema, calf tenderness - Back Exam Back exam: Present: normal inspection, full ROM. Absent: tenderness, CVA tenderness (R), CVA tenderness (L), muscle spasm, paraspinal tenderness - Neurological Exam Neurological exam: Present: alert, oriented X3, CN II-XII intact, normal gait, reflexes normal - Skin Skin exam: Present: warm, intact, normal color ED Course Vital Signs 09/21/18 09/21/18 09/21/18 07:44 07:45 07:46 Temperature Pulse Rate 56 L Respiratory Rate Blood Pressure 87/52 Blood Pressure 87/52 [Right] O2 Sat by Pulse 96 97 Oximetry 09/21/18 09/21/18 09/21/18 07:50 08:00 08:15 Temperature 97.4 F L Pulse Rate 56 L Respiratory 16 Rate Blood Pressure 104/61 95/59 95/59 Blood Pressure [Right] O2 Sat by Pulse 96 95 96 Oximetry 09/21/18 09/21/18 09/21/18 08:40 08:41 08:49 Temperature Pulse Rate 69 Respiratory 16 14 Rate Blood Pressure 89/59 Blood Pressure [Right] O2 Sat by Pulse Oximetry 09/21/18 09/21/18 09/21/18 09:01 09:15 09:31 Temperature Pulse Rate 74 61 67 Respiratory 15 11 L 10 L Rate Blood Pressure 105/55 105/55 112/65 Blood Pressure [Right] O2 Sat by Pulse Oximetry 09/21/18 09/21/18 09/21/18 09:36 09:45 10:00 Temperature Pulse Rate 68 66 Respiratory 16 12 15 Rate Blood Pressure 112/65 103/55 Blood Pressure [Right] O2 Sat by Pulse 94 93 90 Oximetry 09/21/18 09/21/18 09/21/18 10:15 10:30 10:45 Temperature Pulse Rate 68 66 65 Respiratory 13 13 14 Rate Blood Pressure 103/55 93/53 93/53 Blood Pressure [Right] O2 Sat by Pulse 93 89 95 Oximetry 09/21/18 09/21/18 09/21/18 11:01 11:15 11:30 Temperature Pulse Rate 70 67 77 Respiratory 13 13 13 Rate Blood Pressure 107/70 107/70 115/70 Blood Pressure [Right] O2 Sat by Pulse 93 97 93 Oximetry ED Medical Decision Making - Lab Data Result diagrams: 09/21/18 08:34 09/21/18 08:34 - EKG Data -: EKG Interpreted by Mt EKG shows normal: sinus rhythm Rate: normal - EKG Data Interpretation: no acute changes - Radiology Data Radiology results: report reviewed CT brain is negative for acute finding. - Medical Decision Making Patient is 73 years old male with history of hypertension, coronary artery disease, GERD and arthritis. Patient presented to the ER via EMS stating that he is feeling generalized weakness started this morning. Patient stated that he took extra dose of his Neurontin 600 mg. He stated that he usually take one tablet that he took 2 tablets last night. EMS reported that initial blood pre ssure was 88/46. Patient denied any chest pain, shortness of breath, abdominal pain, nausea or vomiting. Patient received 2 L of fluids. Patient stated that he is feeling much better. No dizziness. Patient is still denying any chest pain or shortness of breath. CT brain is negative for acute findings. I believe patient's symptoms is most likely related to a side effect of extra dose of his Neurontin. I counseled patient on taking his prescription as prescribed. I advised the patient to follow up with his primary care physician in the next 2-3 days and to return to the ER if his symptoms are not improved. Critical Care Time: Yes Critical care time in (mins) excluding proc time.: 30 Critical care attestation.: If time is entered above; I have spent that time in minutes in the direct care of this critically ill patient, excluding procedure time. ED Disposition Clinical Impression: Dizziness, Hypotension Disposition: DC-01 TO HOME OR SELFCARE Is pt being admited?: No Condition: Stable Instructions: Hypotension (ED), Dizziness (ED) Referrals: PAUL GALO MD [Primary Care Provider] - 3-5 Days
[2018-09-21 09:02] LABS: Basophils % (Auto) 0.4 % (0.0-1.8); Eosinophils # (Auto) 0.1 K/mm3 (0.0-0.4); Eosinophils % (Auto) 0.9 % (0.0-4.3); Hematocrit 40.4 % (35.5-45.6); Hemoglobin 13.8 gm/dl (11.8-15.2); Lymphocytes # (Auto) 1.9 K/mm3 (1.2-5.4); Lymphocytes % (Auto) 22.4 % (13.4-35.0); Mean Corpuscular HGB Conc 34 % (32-34); Mean Corpuscular Volume 108 fl (84-94); Monocytes # (Auto) 1.1 K/mm3 (0.0-0.8); Monocytes % (Auto) 13.2 % (0.0-7.3); Platelet Count 184 K/mm3 (140-440); Red Blood Count 3.75 M/mm3 (3.65-5.03); Red Cell Distribution Width 12.8 % (13.2-15.2)
--- NOTE | 2018-09-21 09:02 | Cat Scan Report ---
FINAL REPORT EXAM: CT HEAD/BRAIN WO CON HISTORY: dizziness TECHNIQUE: CT of the Head without IV contrast. PRIORS: None currently available. FINDINGS: There is no evidence for acute ischemia. There is no hemorrhage. There is no midline shift. There is no hydrocephalus. There is no mass. Age appropriate gabriel-white matter attenuation is noted. There is no calvarial fracture. The temporal bones demonstrate aerated mastoid air cells. The middle ears appear unremarkable. [id number] mucosal thickening in both ethmoid sinuses. Globes are intact. IMPRESSION: No acute intracranial findings.
[2018-09-21 09:09] LABS: INR 0.98 (0.87-1.13)
[2018-09-21 10:26] LABS: BUN/Creatinine Ratio 21; Blood Urea Nitrogen 21 mg/dL (9-20)
[2018-09-21 10:37] LABS: Hemolysis Index 79
[2018-09-21 11:15] LABS: Bacteria,Urine 4+ /HPF (Negative); Bilirubin,Urine NEG (Negative); Blood,Urine NEG (Negative); Color,Urine Yellow (Yellow); Mucus,Urine FEW /HPF; Protein,Urine <15 mg/dL mg/dL (Negative)
[2018-09-21 11:43] VITALS: BP 115/70
== END 2018-09-21 12:40 | disposition home or self-care (01) ==
LOC: ED 07:45
DX: I95.9 Hypotension, unspecified (principal); R42 Dizziness and giddiness; K21.9 Gastro-esophageal reflux disease without esophagitis; E78.00 Pure hypercholesterolemia, unspecified; F17.200 Nicotine dependence, unspecified, uncomplicated; Z88.6 Allergy status to analgesic agent; Z87.442 Personal history of urinary calculi; Z90.49 Acquired absence of other specified parts of digestive tract
CPT/HCPCS: 36415; 70450; 80048; 81001; 82140; 84484; 85025; 85610; 93005; 93010; 96361; 96374; 99285; J2405; J7030

== ENCOUNTER 2018-10-14 16:24 | Emergency (ER) | payer MEDICARE ==
[2018-10-14 17:05] VITALS: BP 179/88
[2018-10-14] MEDS ORDERED: ZOFRAN ODT PO ONE (17:05)
--- NOTE | 2018-10-14 17:06 | Emergency Department Report ---
Chief Complaint: Abdominal Pain Stated Complaint: STOMACH PAIN Time Seen by Provider: 10/14/18 17:03 - HPI History of Present Illness: This is a 73 y.o. male that presents with nausea and vomiting since this morning. Patient states he ate baked beans and sausage off the grill last night. Denies diarrhea and abdominal pain. - ROS Review of Systems: nausea and vomiting. - Exam Vital Signs: Vital Signs 10/14/18 17:04 Temperature 98 F Pulse Rate 87 Respiratory 20 Rate Blood Pressure 179/88 O2 Sat by Pulse 100 Oximetry MSE screening note: Focused history and physical exam performed. Due to findings the following was ordered: Given zofran odt 4 mg po once. Fast track for further evaluation. ED Disposition for MSE Condition: Stable
[2018-10-14] MEDS ORDERED: ZOFRAN ODT ONE (17:07)
== END 2018-10-14 18:30 | disposition left against medical advice (07) ==
LOC: ED 16:24
DX: R11.2 Nausea with vomiting, unspecified (principal); Z53.21 Procedure and treatment not carried out due to patient leaving prior to being seen by health care provider
CPT/HCPCS: Q0162

== ENCOUNTER 2019-02-17 23:36 | Emergency (ER) | payer MEDICARE ==
[2019-02-18 01:21] LABS: Hematocrit 35.9 % (35.5-45.6); Hemoglobin 12.5 gm/dl (11.8-15.2); Mean Corpuscular HGB Conc 35 % (32-34); Mean Corpuscular Volume 107 fl (84-94); Platelet Count 161 K/mm3 (140-440); Red Blood Count 3.37 M/mm3 (3.65-5.03); Red Cell Distribution Width 13.3 % (13.2-15.2)
[2019-02-18 01:51] LABS: Alanine Aminotransferase 9 units/L (7-56); Albumin 3.7 g/dL (3.9-5); BUN/Creatinine Ratio 19; Blood Urea Nitrogen 15 mg/dL (9-20); Calcium 9.3 mg/dL (8.4-10.2); Hemolysis Index 6
[2019-02-18 02:24] LABS: Bilirubin,Urine NEG (Negative); Blood,Urine NEG (Negative); Color,Urine Yellow (Yellow); Mucus,Urine FEW /HPF; Protein,Urine <15 mg/dL mg/dL (Negative)
[2019-02-18] MEDS ORDERED: ZOFRAN IM ONE (02:26)
[2019-02-18] MEDS ORDERED: SOLU-Medrol IM ONE (02:26)
[2019-02-18] MEDS ORDERED: MORPHINE IM ONE (02:26)
--- NOTE | 2019-02-18 02:33 | Emergency Department Report ---
ED Headache HPI - General Chief Complaint: Headache Stated Complaint: HEADACHE Time Seen by Provider: 02/18/19 02:26 Source: patient - History of Present Illness Initial Comments: Patient is 73 years old male with history of hypertension and GERD. Patient presented to the ER complaining of one month history of headache, to the left temporal area. Patient stated that this area is very tender to touch. Patient stated that he was seen at [facility] and another to hospitals and his primary care physician. Patient had to CT scan of the brain that was negative according to the patient reports. Patient denied any fever, neck stiffness, weakness numbness or tingling sensation. Patient stated that sometimes he will have some double vision in the left eye but he does not have it anymore now. Allergies/Adverse Reactions: Allergies aspirin Allergy (Verified 06/06/17 12:35) Vomiting Home Medications: Ambulatory Orders Gabapentin 300 mg PO BID 07/11/13 Clopidogrel [Plavix] 75 mg PO DAILY #30 tablet 03/06/15 Simvastatin (Nf) [Zocor TAB] 20 mg PO QHS #30 tablet 03/06/15 Atenolol [Tenormin] 25 mg PO DAILY 08/20/16 ISOSORBIDE MONOnitrate [Imdur ER] 30 mg PO DAILY 08/20/16 Lumigan 0.01% 1 drops OU QHS 08/20/16 traZODone [Desyrel] 100 mg PO QHS 08/20/16 Cholecalciferol (Vitamin D3) [Vitamin D3] 5,000 unit PO DAILY 06/17/17 Clotrimazole 1% [Lotrimin] 1 applic TP BID 06/17/17 Losartan-Hctz 50-12.5 mg Tab 1 tab PO DAILY 09/21/18 amLODIPine [Norvasc] 5 mg PO DAILY 09/21/18 oxyCODONE /ACETAMINOPHEN 10 mg PO PRN 09/21/18 ED Review of Systems ROS: Stated complaint: HEADACHE Other details as noted in HPI Comment: All other systems reviewed and negative Constitutional: denies: chills, fever Respiratory: denies: cough, orthopnea, shortness of breath, SOB with exertion, SOB at rest Gastrointestinal: denies: abdominal pain, nausea, vomiting Neurological: headache. denies: weakness, numbness, paresthesias, confusion, abnormal gait, vertigo ED Past Medical Hx - Past Medical History Previous Medical History?: Yes Hx Hypertension: Yes Hx Heart Attack/AMI: No (had "blood clot in heart" 2011) Hx Deep Vein Thrombosis: No Hx GERD: Yes Hx Liver Disease: Yes (hepatitis C) Hx Renal Disease: No (stones, BPH) Hx Arthritis: Yes Hx Kidney Stones: Yes Hx Asthma: No Hx COPD: No Hx Tuberculosis: Yes (POSITIVE SKIN TEST,RECEIVED [place] 1988) Hx HIV: No Additional medical history: HIGH CHOLESTEROL, "Blood clot behind heart" - Surgical History Past Surgical History?: Yes Hx Cholecystectomy: Yes Additional Surgical History: Hernia repair - Social History Smoking Status: Current Every Day Smoker - Medications Home Medications: Home Medications Medication Instructions Recorded Confirmed Last Taken Type Gabapentin 300 mg PO BID 07/11/13 09/21/18 09/20/18 History Clopidogrel [Plavix] 75 mg PO DAILY #30 tablet 03/06/15 09/21/18 09/20/18 Rx Simvastatin (Nf) [Zocor TAB] 20 mg PO QHS #30 tablet 03/06/15 09/21/18 09/20/18 Rx Atenolol [Tenormin] 25 mg PO DAILY 08/20/16 09/21/18 09/20/18 History ISOSORBIDE MONOnitrate [Imdur ER] 30 mg PO DAILY 08/20/16 09/21/18 09/20/18 History Lumigan 0.01% 1 drops OU QHS 08/20/16 09/21/18 06/25/17 History traZODone [Desyrel] 100 mg PO QHS 08/20/16 09/21/18 09/20/18 History Cholecalciferol (Vitamin D3) 5,000 unit PO DAILY 06/17/17 09/21/18 09/20/18 History [Vitamin D3] Clotrimazole 1% [Lotrimin] 1 applic TP BID 06/17/17 09/21/18 06/25/17 History Losartan-Hctz 50-12.5 mg Tab 1 tab PO DAILY 09/21/18 09/21/18 09/20/18 History amLODIPine [Norvasc] 5 mg PO DAILY 09/21/18 09/21/18 09/20/18 History oxyCODONE /ACETAMINOPHEN 10 mg PO PRN 09/21/18 09/21/18 Unknown History ED Physical Exam - General Limitations: No Limitations General appearance: alert, in no apparent distress - Head Head exam: Present: atraumatic, normocephalic, normal inspection, other (left temporal area with tenderness to palpation.) - Eye Eye exam: Present: normal appearance, PERRL - ENT ENT exam: Present: normal exam, normal orophraynx, mucous membranes moist - Neck Neck exam: Present: normal inspection, full ROM. Absent: tenderness, meningismus, lymphadenopathy, thyromegaly - Respiratory Respiratory exam: Present: normal lung sounds bilaterally - Cardiovascular Cardiovascular Exam: Present: regular rate, normal rhythm, normal heart sounds - GI/Abdominal GI/Abdominal exam: Present: soft, normal bowel sounds. Absent: distended, tenderness, guarding, rebound, rigid, organomegaly, mass, bruit, pulsatile mass, hernia - Extremities Exam Extremities exam: Present: normal inspection, full ROM, normal capillary refill. Absent: tenderness, pedal edema, joint swelling, calf tenderness - Back Exam Back exam: Present: normal inspection, full ROM. Absent: CVA tenderness (R), CVA tenderness (L), muscle spasm, paraspinal tenderness, vertebral tenderness - Neurological Exam Neurological exam: Present: alert, oriented X3, CN II-XII intact, normal gait, reflexes normal - Psychiatric Psychiatric exam: Present: normal mood - Skin Skin exam: Present: warm, intact, normal color ED Course Vital Signs 02/17/19 02/18/19 02/18/19 23:38 00:42 02:00 Temperature 97.3 F L 97.8 F Pulse Rate 64 58 L 60 Respiratory 18 16 16 Rate Blood Pressure 133/69 130/69 Blood Pressure 128/70 [Left] O2 Sat by Pulse 96 98 Oximetry 02/18/19 02/18/19 02:45 03:00 Temperature Pulse Rate 47 L Respiratory 16 12 Rate Blood Pressure 130/69 Blood Pressure [Left] O2 Sat by Pulse Oximetry ED Medical Decision Making - Lab Data Result diagrams: 02/18/19 01:04 02/18/19 01:04 - Medical Decision Making Patient is 73 years old male with history of hypertension and GERD. Patient presented to the ER complaining of one month history of headache, to the left temporal area. Patient stated that this area is very tender to touch. Patient stated that he was seen at [facility] and another to hospitals and his primary care physician. Patient had to CT scan of the brain that was negative according to the patient reports. Patient denied any fever, neck stiffness, weakness numbness or tingling sensation. Patient stated that sometimes he will have some double vision in the left eye but he does not have it anymore now. Patient is him morphine and Zofran. And also Solu-Medrol. Possibility of temporal arteritis raised. Patient ESR and CRP are normal however. I will start patient on prednisone and advised to follow-up with his primary care physician in the next 2-3 days and to return to the ER if symptoms are not improved. Critical care attestation.: If time is entered above; I have spent that time in minutes in the direct care of this critically ill patient, excluding procedure time. ED Disposition Clinical Impression: Headache Disposition: DC-01 TO HOME OR SELFCARE Is pt being admited?: No Condition: Stable Instructions: Acute Headache (ED) Referrals: PRIMARY CARE, [Primary Care Provider] - 3-5 Days
[2019-02-18 04:22] VITALS: BP 109/65
== END 2019-02-18 04:21 | disposition home or self-care (01) ==
LOC: ED 23:36
DX: R51 Headache (principal); I10 Essential (primary) hypertension; K21.0 Gastro-esophageal reflux disease with esophagitis; M19.90 Unspecified osteoarthritis, unspecified site; E78.00 Pure hypercholesterolemia, unspecified; F17.200 Nicotine dependence, unspecified, uncomplicated; Z90.49 Acquired absence of other specified parts of digestive tract; Z79.899 Other long term (current) drug therapy; Z88.6 Allergy status to analgesic agent
CPT/HCPCS: 36415; 80053; 81001; 85027; 85652; 86140; 96372; 99283; J2270; J2405; J2930

== ENCOUNTER 2019-05-07 14:13 | Emergency (ER) | payer MEDICARE | END 2019-05-07 15:30 | LOC: ED 14:13 | DX: R51 Headache (principal); Z53.21 Procedure and treatment not carried out due to patient leaving prior to being seen by health care provider ==

== ENCOUNTER 2019-06-15 03:17 | Emergency (ER) | payer MEDICARE ==
[2019-06-15] MEDS ORDERED: ASPIRIN 325 MG TAB PO ONE (03:27)
[2019-06-15 03:33] VITALS: BP 98/50
--- NOTE | 2019-06-15 03:56 | XRay Report ---
CHEST 1 VIEW INDICATION: Chest Pain. COMPARISON: 03/07/2014. FINDINGS: Support devices: None. Heart: Within normal limits. Lungs/Pleura: No acute air space or interstitial disease. Additional findings: None. IMPRESSION: No acute abnormality. Signer Name: Ky Patel MD Signed: 06/15/2019 3:52 AM Workstation Name: [email or web address]
[2019-06-15 04:18] LABS: Basophils % (Auto) 0.4 % (0.0-1.8); Eosinophils # (Auto) 0.1 K/mm3 (0.0-0.4); Eosinophils % (Auto) 1.3 % (0.0-4.3); Hematocrit 41.4 % (35.5-45.6); Hemoglobin 14.3 gm/dl (11.8-15.2); Lymphocytes # (Auto) 2.6 K/mm3 (1.2-5.4); Lymphocytes % (Auto) 28.2 % (13.4-35.0); Mean Corpuscular HGB Conc 35 % (32-34); Mean Corpuscular Volume 105 fl (84-94); Monocytes # (Auto) 0.9 K/mm3 (0.0-0.8); Platelet Count 241 K/mm3 (140-440); Red Blood Count 3.95 M/mm3 (3.65-5.03); Red Cell Distribution Width 12.7 % (13.2-15.2)
[2019-06-15] MEDS ORDERED: ALUM-MAG HYDROXIDE-SIMETHICONE 200-200-20MG/5ML ORAL LIQD 30 ML PO ONE (04:33)
[2019-06-15] MEDS ORDERED: SODIUM CHLORIDE 0.9% 500 ML 500 ML IV ONE (04:34)
[2019-06-15 04:39] LABS: INR 1.06 (0.87-1.13)
[2019-06-15 04:40] LABS: BUN/Creatinine Ratio 20; Blood Urea Nitrogen 30 mg/dL (9-20); Calcium 9.7 mg/dL (8.4-10.2); Hemolysis Index 16
--- NOTE | 2019-06-15 04:47 | Emergency Department Report ---
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 Patient is having pain to the center of his chest. He states it feels like gas. It occurs at rest without aggravating or alleviating factors. Initially was lasting for 10-15 minutes at a time but it is lasting for about one hour at a time. He denies associated symptoms including shortness of breath, nausea, vomiting, or diaphoresis. Denies history of PE/DVT or leg edema. Patient states that his gis administrator has scheduled for vascular evaluation of his legs in the am. At this time it is unclear if he is to get a Doppler or be evaluated by a vascular surgeon for PAD.. He reports that he had a negative stress test 6 months ago. He's been compliant with his medications. Pt presents hypotensive and states he did not have his 12 AM BP medication as scheduled today. cardiologis: dr Raymond - Related Data Home Medications Medication Instructions Recorded Confirmed Last Taken Gabapentin 300 mg PO BID 07/11/13 09/21/18 09/20/18 Atenolol [Tenormin] 25 mg PO DAILY 08/20/16 09/21/18 09/20/18 ISOSORBIDE MONOnitrate [Imdur ER] 30 mg PO DAILY 08/20/16 09/21/18 09/20/18 Lumigan 0.01% 1 drops OU QHS 08/20/16 09/21/18 06/25/17 traZODone [Desyrel] 100 mg PO QHS 08/20/16 09/21/18 09/20/18 Cholecalciferol (Vitamin D3) 5,000 unit PO DAILY 06/17/17 09/21/18 09/20/18 [Vitamin D3] Clotrimazole 1% [Lotrimin] 1 applic TP BID 06/17/17 09/21/18 06/25/17 Losartan-Hctz 50-12.5 mg Tab 1 tab PO DAILY 09/21/18 09/21/18 09/20/18 amLODIPine 5 mg PO DAILY 09/21/18 09/21/18 09/20/18 oxyCODONE /ACETAMINOPHEN 10 mg PO PRN 09/21/18 09/21/18 Unknown Previous Rx's Medication Instructions Recorded Last Taken Type Clopidogrel [Plavix] 75 mg PO DAILY #30 tablet 03/06/15 09/20/18 Rx Simvastatin (Nf) [Zocor TAB] 20 mg PO QHS #30 tablet 03/06/15 09/20/18 Rx Ondansetron [Zofran Odt] 4 mg PO Q8HR PRN #14 tab.rapdis 02/18/19 Unknown Rx Prednisone [predniSONE 10 mg 10 mg PO .TAPER #1 tab.ds.pk 02/18/19 Unknown Rx (6-Day Pack, 21 Tabs)] traMADoL [Ultram 50 MG tab] 50 mg PO Q4HR PRN #14 tablet 02/18/19 Unknown Rx Allergies Allergy/AdvReac Type Severity Reaction Status Date / Time aspirin Allergy Vomiting Verified 06/06/17 12:35 Heart Score - HEART Score History: Moderately suspicious EKG: Normal Age: > 65 Risk factors: > 3 risk factors or hx of atherosclerotic disease Troponin: < normal limit HEART Score: 5 ED Review of Systems ROS: Stated complaint: CP Other details as noted in HPI Comment: All other systems reviewed and negative ED Past Medical Hx - Past Medical History Previous Medical History?: Yes Hx Hypertension: Yes Hx CVA: Yes 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" 2011) Hx Deep Vein Thrombosis: No Hx GERD: Yes Hx Liver Disease: Yes (hepatitis C) Hx Renal Disease: (stones, BPH) Hx Arthritis: Yes Hx Kidney Stones: Yes Hx Asthma: No Hx COPD: No Hx Tuberculosis: Yes (POSITIVE SKIN TEST,RECEIVED [place] 1988) Hx HIV: No Additional medical history: HIGH CHOLESTEROL, "Blood clot behind heart" - Surgical History Past Surgical History?: Yes Hx Cholecystectomy: Yes Additional Surgical History: Hernia repair - Social History Smoking Status: Current Every Day Smoker Substance Use Type: None - Medications Home Medications: Home Medications Medication Instructions Recorded Confirmed Last Taken Type Gabapentin 300 mg PO BID 07/11/13 09/21/18 09/20/18 History Clopidogrel [Plavix] 75 mg PO DAILY #30 tablet 03/06/15 09/21/18 09/20/18 Rx Simvastatin (Nf) [Zocor TAB] 20 mg PO QHS #30 tablet 03/06/15 09/21/18 09/20/18 Rx Atenolol [Tenormin] 25 mg PO DAILY 08/20/16 09/21/18 09/20/18 History ISOSORBIDE MONOnitrate [Imdur ER] 30 mg PO DAILY 08/20/16 09/21/18 09/20/18 History Lumigan 0.01% 1 drops OU QHS 08/20/16 09/21/18 06/25/17 History traZODone [Desyrel] 100 mg PO QHS 08/20/16 09/21/18 09/20/18 History Cholecalciferol (Vitamin D3) 5,000 unit PO DAILY 06/17/17 09/21/18 09/20/18 History [Vitamin D3] Clotrimazole 1% [Lotrimin] 1 applic TP BID 06/17/17 09/21/18 06/25/17 History Losartan-Hctz 50-12.5 mg Tab 1 tab PO DAILY 09/21/18 09/21/18 09/20/18 History amLODIPine 5 mg PO DAILY 09/21/18 09/21/18 09/20/18 History oxyCODONE /ACETAMINOPHEN 10 mg PO PRN 09/21/18 09/21/18 Unknown History Ondansetron [Zofran Odt] 4 mg PO Q8HR PRN #14 tab.rapdis 02/18/19 Unknown Rx Prednisone [predniSONE 10 mg 10 mg PO .TAPER #1 tab.ds.pk 02/18/19 Unknown Rx (6-Day Pack, 21 Tabs)] traMADoL [Ultram 50 MG tab] 50 mg PO Q4HR PRN #14 tablet 02/18/19 Unknown Rx ED Physical Exam - General Limitations: No Limitations - Other Other exam information: General: No acute distress Head: Atraumatic Eyes: normal appearance ENT: Moist mucous membranes Neck: Normal appearance, no midline tenderness Chest: Clear to auscultation bilaterally, chest wall nontender, CV: Regular rate and rhythm Abdomen: Soft, normal bowel sounds, nontender, nondistended, no rebound or guarding Back: Normal inspection Extremity: Normal inspection infection, full range of motion, calf tenderness or edema Neuro: Alert O x 3, no facial asymmetry, speech clear, no gross motor sensory deficit Psych: Appropriate behavior Skin: No rash ED Course Vital Signs 06/15/19 03:21 Temperature 97.3 F L Pulse Rate 58 L Respiratory 18 Rate Blood Pressure 98/50 O2 Sat by Pulse 98 Oximetry CECY score - Cecy Score Age > 65: (1) Yes Aspirin use within the Past 7 Days: (1) Yes 3 or more CAD Risk Factors: (1) Yes 2 or more Angina events in past 24 hrs: (0) No Known CAD with more than 50% Stenosis: (0) No Elevated Cardiac Markers: (0) No ST Deviation Greater than 0.5mm: (0) No CECY Score: 3 ED Medical Decision Making - Lab Data Result diagrams: 06/15/19 03:58 06/15/19 03:58 Lab Results 06/15/19 06/15/19 06/15/19 Range/Units 03:58 03:58 04:19 WBC 9.3 (4.5-11.0) K/mm3 RBC 3.95 (3.65-5.03) M/mm3 Hgb 14.3 (11.8-15.2) gm/dl Hct 41.4 (35.5-45.6) % MCV 105 H (84-94) fl MCH 36 H (28-32) pg MCHC 35 H (32-34) % RDW 12.7 L (13.2-15.2) % Plt Count 241 (140-440) K/mm3 Lymph % (Auto) 28.2 (13.4-35.0) % [place] % (Auto) 10.0 H (0.0-7.3) % Eos % (Auto) 1.3 (0.0-4.3) % Baso % (Auto) 0.4 (0.0-1.8) % Lymph # 2.6 (1.2-5.4) K/mm3 [place] # 0.9 H (0.0-0.8) K/mm3 Eos # 0.1 (0.0-0.4) K/mm3 Baso # 0.0 (0.0-0.1) K/mm3 Seg Neutrophils % 60.1 (40.0-70.0) % Seg Neutrophils # 5.6 (1.8-7.7) K/mm3 PT 13.7 (12.2-14.9) Sec. INR 1.06 (0.87-1.13) D-Dimer (0-234) ng/mlDDU Sodium 139 (137-145) mmol/L Potassium 3.6 (3.6-5.0) mmol/L Chloride 102.8 (98-107) mmol/L Carbon Dioxide 23 (22-30) mmol/L Anion Gap 17 mmol/L BUN 30 H (9-20) mg/dL Creatinine 1.5 (0.8-1.5) mg/dL Estimated GFR 55 ml/min BUN/Creatinine Ratio 20 % Glucose 155 H (75-100) mg/dL Calcium 9.7 (8.4-10.2) mg/dL Troponin T < 0.010 (0.00-0.029) ng/mL 06/15/19 Range/Units 04:19 WBC (4.5-11.0) K/mm3 RBC (3.65-5.03) M/mm3 Hgb (11.8-15.2) gm/dl Hct (35.5-45.6) % MCV (84-94) fl MCH (28-32) pg MCHC (32-34) % RDW (13.2-15.2) % Plt Count (140-440) K/mm3 Lymph % (Auto) (13.4-35.0) % [place] % (Auto) (0.0-7.3) % Eos % (Auto) (0.0-4.3) % Baso % (Auto) (0.0-1.8) % Lymph # (1.2-5.4) K/mm3 [place] # (0.0-0.8) K/mm3 Eos # (0.0-0.4) K/mm3 Baso # (0.0-0.1) K/mm3 Seg Neutrophils % (40.0-70.0) % Seg Neutrophils # (1.8-7.7) K/mm3 PT (12.2-14.9) Sec. INR (0.87-1.13) D-Dimer 460.22 H (0-234) ng/mlDDU Sodium (137-145) mmol/L Potassium (3.6-5.0) mmol/L Chloride (98-107) mmol/L Carbon Dioxide (22-30) mmol/L Anion Gap mmol/L BUN (9-20) mg/dL Creatinine (0.8-1.5) mg/dL Estimated GFR ml/min BUN/Creatinine Ratio % Glucose (75-100) mg/dL Calcium (8.4-10.2) mg/dL Troponin T (0.00-0.029) ng/mL - EKG Data -: EKG Interpreted by Me (pac's) EKG shows normal: sinus rhythm, ST-T waves (no stemi) Rate: normal (69) - Radiology Data Radiology results: report reviewed CHEST 1 VIEW INDICATION: Chest Pain. COMPARISON: 03/07/2014. FINDINGS: Support devices: None. Heart: Within normal limits. Lungs/Pleura: No acute air space or interstitial disease. Additional findings: None. IMPRESSION: No acute abnormality. CT angio chest INDICATION / CLINICAL INFORMATION: cp, elevated ddimer. TECHNIQUE: Axial CT images were obtained after injection of Omnipaque 350, 100 cc IV contrast using CTA protocol. 3 plane MIP / 3D reconstructions were produced. All CT scans at this location are performed using CT dose reduction for ALARA by means of automated exposure control. COMPARISON: None available. FINDINGS: The lungs contain no mass, infiltrate or pleural fluid. Changes of prior granulomatous exposure are noted. No mediastinal mass or adenopathy. Atherosclerotic calcification involves coronary arteries and aorta. Negative for aneurysm, dissection or pulmonary embolus. IMPRESSION: 1. Negative for pulmonary embolus or pneumonia. 2. Previous granulomatous exposure. - Medical Decision Making Pt with c/o chest pain that feels like gas. He does have a history of GERD. D- dimer elevated but CT angiogram negative. Initial troponin negative with repeat pending. Patient reports a negative stress tests performed 6 months ago by his gis administrator. Patient has a systolic pressure in the high 90s despite not taking his scheduled 12 AM blood pressure medication. Normal saline bolus 1 L ordered. Patient provided aspirin, Maalox, viscous lidocaine, Doppler ordered, and hospitalist informed for admission. cardiology consult ordered for am - Differential Diagnosis mi, pe, gerd, unstable angina, disection Critical Care Time: No Critical care attestation.: If time is entered above; I have spent that time in minutes in the direct care of this critically ill patient, excluding procedure time. ED Disposition Clinical Impression: Chest pain, GERD (gastroesophageal reflux disease) Disposition: -09 OP ADMIT IP TO THIS HOSP Is pt being admited?: Yes Does the pt Need Aspirin: Yes Condition: Stable Time of Disposition: 05:56 (dr Blancas/hosp)
[2019-06-15] MEDS ORDERED: LIDOCAINE VISCOUS 2% 15 ML ORAL LIQD PO ONE (04:49)
[2019-06-15] MEDS ORDERED: SODIUM CHLORIDE 0.9% 1000 ML 1,000 ML IV ONE (04:50)
--- NOTE | 2019-06-15 05:42 | Cat Scan Report ---
CT angio chest INDICATION / CLINICAL INFORMATION: cp, elevated ddimer. TECHNIQUE: Axial CT images were obtained after injection of Omnipaque 350, 100 cc IV contrast using CTA protocol . 3 plane MIP / 3D reconstructions were produced. All CT scans at this location are performed using C T dose reduction for ALARA by means of automated exposure control. COMPARISON: None available. FINDINGS: The lungs contain no mass, infiltrate or pleural fluid. Changes of prior granulomatous exposure are n oted. No mediastinal mass or adenopathy. Atherosclerotic calcification involves coronary arteries and aorta . Negative for aneurysm, dissection or pulmonary embolus. IMPRESSION: 1. Negative for pulmonary embolus or pneumonia. 2. Previous granulomatous exposure. Signer Name: Ky Patel MD Signed: 06/15/2019 5:38 AM Workstation Name: [id number]
== END 2019-06-15 07:00 | disposition left against medical advice (07) ==
LOC: ED 03:17
DX: K21.9 Gastro-esophageal reflux disease without esophagitis (principal); I10 Essential (primary) hypertension; I25.2 Old myocardial infarction; B19.20 Unspecified viral hepatitis C without hepatic coma; M19.90 Unspecified osteoarthritis, unspecified site; E78.00 Pure hypercholesterolemia, unspecified; F17.200 Nicotine dependence, unspecified, uncomplicated; Z87.442 Personal history of urinary calculi; Z86.11 Personal history of tuberculosis; Z86.73 Personal history of transient ischemic attack (TIA), and cerebral infarction without residual deficits; Z90.49 Acquired absence of other specified parts of digestive tract; Z79.899 Other long term (current) drug therapy; Z88.6 Allergy status to analgesic agent
CPT/HCPCS: 36415; 71045; 71275; 80048; 84484; 85025; 85379; 85610; 93005; 93010; 99285; J7030; Q9967

== ENCOUNTER 2019-08-13 07:33 | Emergency (ER) | payer MEDICARE ==
--- NOTE | 2019-08-13 11:19 | Emergency Department Report ---
ED General Adult HPI - General Chief complaint: Upper Respiratory Infection Stated complaint: COLD SYM Time Seen by Provider: 08/13/19 10:41 Source: patient Mode of arrival: Ambulatory Limitations: No Limitations - History of Present Illness Initial comments: This is a 74-year-old man. He states he does have a primary care provider but has not seen them. He states he has been prescribed an inhaler in the past. He does not smoke. He states he has been coughing for the past few days but that has proved. He feels like his chest is still congested. He is unaware of wheezing. He is using an inhaler before. He does not report fever or chills. Denies chest pain pressure or tightness. He denies other symptoms. On my encounter he standing in the hallway and really quite ready for discharge. Denies a history of prior pneumonia. He states he occasionally produces sputum which is green. -: Gradual, days(s) Consistency: intermittent Improves with: none Worsens with: none Associated Symptoms: denies other symptoms Treatments Prior to Arrival: none - Related Data Home Medications Medication Instructions Recorded Confirmed Last Taken Gabapentin 300 mg PO BID 07/11/13 09/21/18 09/20/18 ISOSORBIDE MONOnitrate [Imdur ER] 30 mg PO DAILY 08/20/16 09/21/18 09/20/18 Lumigan 0.01% 1 drops OU QHS 08/20/16 09/21/18 06/25/17 atenoloL [Tenormin] 25 mg PO DAILY 08/20/16 09/21/18 09/20/18 traZODone [Desyrel] 100 mg PO QHS 08/20/16 09/21/18 09/20/18 Cholecalciferol (Vitamin D3) 5,000 unit PO DAILY 06/17/17 09/21/18 09/20/18 [Vitamin D3] Clotrimazole 1% [Lotrimin] 1 applic TP BID 06/17/17 09/21/18 06/25/17 Losartan-Hctz 50-12.5 mg Tab 1 tab PO DAILY 09/21/18 09/21/18 09/20/18 amLODIPine 5 mg PO DAILY 09/21/18 09/21/18 09/20/18 oxyCODONE /ACETAMINOPHEN 10 mg PO PRN 09/21/18 09/21/18 Unknown Previous Rx's Medication Instructions Recorded Last Taken Type Clopidogrel [Plavix] 75 mg PO DAILY #30 tablet 03/06/15 09/20/18 Rx Simvastatin (Nf) [Zocor TAB] 20 mg PO QHS #30 tablet 03/06/15 09/20/18 Rx Ondansetron [Zofran Odt] 4 mg PO Q8HR PRN #14 tab.rapdis 02/18/19 Unknown Rx Prednisone [predniSONE 10 mg 10 mg PO .TAPER #1 tab.ds.pk 02/18/19 Unknown Rx (6-Day Pack, 21 Tabs)] traMADoL [Ultram 50 MG tab] 50 mg PO Q4HR PRN #14 tablet 02/18/19 Unknown Rx Albuterol Sulfate [Proventil Hfa] 2 puff IH Q4H #1 hfa.aer.ad 08/13/19 Unknown Rx Azithromycin [Zithromax Z-TOVA] 1 pkg PO DAILY #1 tab 08/13/19 Unknown Rx Allergies Allergy/AdvReac Type Severity Reaction Status Date / Time aspirin Allergy Vomiting Verified 06/06/17 12:35 ED Review of Systems ROS: Stated complaint: COLD SYM Other details as noted in HPI Constitutional: denies: chills, fever Eyes: denies: eye pain, eye discharge, vision change ENT: denies: ear pain, throat pain Respiratory: cough, other. 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" 2011) Hx Deep Vein Thrombosis: No Hx GERD: Yes Hx Liver Disease: Yes (hepatitis C) Hx Renal Disease: (stones, BPH) Hx Arthritis: Yes Hx Kidney Stones: Yes Hx Asthma: No Hx COPD: No Hx Tuberculosis: Yes (POSITIVE SKIN TEST,RECEIVED [place] 1988) Hx HIV: No Additional medical history: HIGH CHOLESTEROL, "Blood clot behind heart" - Surgical History Hx Cholecystectomy: Yes Additional Surgical History: Hernia repair - Social History Smoking Status: Never Smoker Substance Use Type: None - Medications Home Medications: Home Medications Medication Instructions Recorded Confirmed Last Taken Type Gabapentin 300 mg PO BID 07/11/13 09/21/18 09/20/18 History Clopidogrel [Plavix] 75 mg PO DAILY #30 tablet 03/06/15 09/21/18 09/20/18 Rx Simvastatin (Nf) [Zocor TAB] 20 mg PO QHS #30 tablet 03/06/15 09/21/18 09/20/18 Rx ISOSORBIDE MONOnitrate [Imdur ER] 30 mg PO DAILY 08/20/16 09/21/18 09/20/18 History Lumigan 0.01% 1 drops OU QHS 08/20/16 09/21/18 06/25/17 History atenoloL [Tenormin] 25 mg PO DAILY 08/20/16 09/21/18 09/20/18 History traZODone [Desyrel] 100 mg PO QHS 08/20/16 09/21/18 09/20/18 History Cholecalciferol (Vitamin D3) 5,000 unit PO DAILY 06/17/17 09/21/18 09/20/18 History [Vitamin D3] Clotrimazole 1% [Lotrimin] 1 applic TP BID 06/17/17 09/21/18 06/25/17 History Losartan-Hctz 50-12.5 mg Tab 1 tab PO DAILY 09/21/18 09/21/18 09/20/18 History amLODIPine 5 mg PO DAILY 09/21/18 09/21/18 09/20/18 History oxyCODONE /ACETAMINOPHEN 10 mg PO PRN 09/21/18 09/21/18 Unknown History Ondansetron [Zofran Odt] 4 mg PO Q8HR PRN #14 tab.rapdis 02/18/19 Unknown Rx Prednisone [predniSONE 10 mg 10 mg PO .TAPER #1 tab.ds.pk 02/18/19 Unknown Rx (6-Day Pack, 21 Tabs)] traMADoL [Ultram 50 MG tab] 50 mg PO Q4HR PRN #14 tablet 02/18/19 Unknown Rx Albuterol Sulfate [Proventil Hfa] 2 puff IH Q4H #1 hfa.aer.ad 08/13/19 Unknown Rx Azithromycin [Zithromax Z-TOVA] 1 pkg PO DAILY #1 tab 08/13/19 Unknown Rx ED Physical Exam - General Limitations: No Limitations General appearance: alert, in no apparent distress - Head Head exam: Present: atraumatic, normocephalic - Eye Eye exam: Present: normal appearance. Absent: scleral icterus - ENT ENT exam: Present: mucous membranes moist - Neck Neck exam: Present: normal inspection. Absent: tenderness, meningismus - Respiratory Respiratory exam: Present: normal lung sounds bilaterally. Absent: respiratory distress - Cardiovascular Cardiovascular Exam: Present: regular rate, normal rhythm. Absent: systolic murmur, diastolic murmur, rubs, gallop - GI/Abdominal GI/Abdominal exam: Present: soft, normal bowel sounds. Absent: distended, tenderness, guarding, rebound - Rectal Rectal exam: Present: deferred - Extremities Exam Extremities exam: Present: normal inspection, full ROM. Absent: pedal edema, joint swelling, calf tenderness - Back Exam Back exam: Present: normal inspection - Neurological Exam Neurological exam: Present: alert, oriented X3, CN II-XII intact, normal gait. Absent: motor sensory deficit - Psychiatric Psychiatric exam: Present: normal affect, normal mood - Skin Skin exam: Present: warm, dry, intact, normal color. Absent: rash ED Course Vital Signs 08/13/19 08/13/19 07:41 07:45 Temperature 97.8 F 97.8 F Pulse Rate 68 65 Respiratory 18 16 Rate Blood Pressure 142/71 Blood Pressure 142/71 [Right] O2 Sat by Pulse 100 96 Oximetry Critical care attestation.: If time is entered above; I have spent that time in minutes in the direct care of this critically ill patient, excluding procedure time. ED Disposition Clinical Impression: Reactive airways dysfunction syndrome Acute bronchitis Qualifiers: Bronchitis organism: unspecified organism Qualified Code(s): J20.9 - Acute bronchitis, unspecified Disposition: DC-01 TO HOME OR SELFCARE Is pt being admited?: No Does the pt Need Aspirin: No Condition: Stable Instructions: Acute Bronchitis (ED) Additional Instructions: Follow-up with your primary care provider. Recur to return any acute change or problem as needed. Prescriptions: Albuterol Sulfate [Proventil Hfa] 2 puff IH Q4H #1 hfa.aer.ad Azithromycin [Zithromax Z-TOVA] 1 pkg PO DAILY #1 tab Referrals: PRIMARY CARE,MD [Primary Care Provider] - 3-5 Days Time of Disposition: 11:20
[2019-08-13 11:32] VITALS: BP 143/82
== END 2019-08-13 11:32 | disposition home or self-care (01) ==
LOC: ED 07:33
DX: J20.9 Acute bronchitis, unspecified (principal); J68.3 Other acute and subacute respiratory conditions due to chemicals, gases, fumes and vapors; I10 Essential (primary) hypertension; I25.2 Old myocardial infarction; K21.9 Gastro-esophageal reflux disease without esophagitis; M19.90 Unspecified osteoarthritis, unspecified site; E78.00 Pure hypercholesterolemia, unspecified; Z86.19 Personal history of other infectious and parasitic diseases; Z87.442 Personal history of urinary calculi; Z98.890 Other specified postprocedural states; Z90.49 Acquired absence of other specified parts of digestive tract; Z79.899 Other long term (current) drug therapy; Z88.6 Allergy status to analgesic agent

== ENCOUNTER 2020-02-14 03:34 | Emergency (ER) | payer MEDICARE ==
[2020-02-14 03:43] VITALS: BP 144/72
--- NOTE | 2020-02-14 04:38 | Cat Scan Report ---
CT head without contrast INDICATION : Headache TECHNIQUE: Axial imaging performed from the skull apex through the skull base without the use of con trast. All CT examinations performed at this facility utilize dose modulation, iterative reconstruct ion or weight-based dosing, when appropriate, to reduce radiation dose to as low as reasonably achiev able. COMPARISON: 09/21/2018 FINDINGS: No acute intracranial hemorrhage or parenchymal abnormality. Minimal cerebral atrophy pres ent. Slight microangiopathic type white matter changes of the periventricular white matter. Ventricle s are normal in size and appear symmetric. Soft tissues including the orbits appear normal. No ac [place] osseous abnormality. Sinuses and mastoid air cells are clear. IMPRESSION: No acute abnormality. Signer Name: Alan Mejia MD Signed: 02/14/2020 4:33 AM Workstation Name: [email or web address]
[2020-02-14] MEDS ORDERED: BUTALB/ACETAMINOPHEN/CAFFEINE TAB PO ONE (05:09)
--- NOTE | 2020-02-14 05:37 | Emergency Department Report ---
ED Headache HPI - General Chief Complaint: Headache Stated Complaint: SEVERE HEADACHE - History of Present Illness Initial Comments: 74-year-old -Hung[place] male presents to the emergency room for intermittent headaches x1 month. Patient states that he saw his doctor on Saturday and had his blood pressure medication adjusted but no improvement for his headache. Patient states that Tylenol does help and his last dose was 8 hours ago. Patient denies any nausea no vomiting no change in vision. Patient denies any weakness. No injury. Nothing makes it worse Tylenol makes it better. Patient does have extensive history of kidney disease CVA, GERD, [place], kidney stones, hepatitis C and high cholesterol. Patient is followed by Dr. Kaiden Aquino at [facility]. Timing/Duration: other (1 month) Quality: achy Recent Head Trauma: occasional headaches Associated Symptoms: denies symptoms Allergies/Adverse Reactions: Allergies aspirin Allergy (Verified 06/06/17 12:35) Vomiting Home Medications: Ambulatory Orders Gabapentin 300 mg PO BID 07/11/13 Clopidogrel [Plavix] 75 mg PO DAILY #30 tablet 03/06/15 Simvastatin (Nf) [Zocor TAB] 20 mg PO QHS #30 tablet 03/06/15 ISOSORBIDE MONOnitrate [Imdur ER] 30 mg PO DAILY 08/20/16 Lumigan 0.01% 1 drops OU QHS 08/20/16 atenoloL [Tenormin] 25 mg PO DAILY 08/20/16 traZODone [Desyrel] 100 mg PO QHS 08/20/16 Cholecalciferol (Vitamin D3) [Vitamin D3] 5,000 unit PO DAILY 06/17/17 Clotrimazole 1% [Lotrimin] 1 applic TP BID 06/17/17 Losartan-Hctz 50-12.5 mg Tab 1 tab PO DAILY 09/21/18 amLODIPine 5 mg PO DAILY 09/21/18 oxyCODONE /ACETAMINOPHEN 10 mg PO PRN 09/21/18 Ondansetron [Zofran Odt] 4 mg PO Q8HR PRN #14 tab.rapdis 02/18/19 Prednisone [predniSONE 10 mg (6-Day Pack, 21 Tabs)] 10 mg PO .TAPER #1 tab.ds.pk 02/18/19 traMADoL [Ultram 50 MG tab] 50 mg PO Q4HR PRN #14 tablet 02/18/19 Albuterol Sulfate [Proventil Hfa] 2 puff IH Q4H #1 hfa.aer.ad 08/13/19 Azithromycin [Zithromax Z-TOVA] 1 pkg PO DAILY #1 tab 08/13/19 ED Review of Systems ROS: Stated complaint: SEVERE HEADACHE Other details as noted in HPI ED Past Medical Hx - Past Medical History Previous Medical History?: Yes Hx Hypertension: Yes Hx CVA: Yes 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" 2011) Hx Deep Vein Thrombosis: No Hx GERD: Yes Hx Liver Disease: Yes (hepatitis C) Hx Renal Disease: (stones, BPH) Hx Arthritis: Yes Hx Kidney Stones: Yes Hx Asthma: No Hx COPD: No Hx Tuberculosis: Yes (POSITIVE SKIN TEST,RECEIVED [place] 1988) Hx HIV: No Additional medical history: HIGH CHOLESTEROL, "Blood clot behind heart" - Surgical History Past Surgical History?: Yes Hx Cholecystectomy: Yes Additional Surgical History: Hernia repair - Social History Smoking Status: Never Smoker Substance Use Type: None - Medications Home Medications: Home Medications Medication Instructions Recorded Confirmed Last Taken Type Gabapentin 300 mg PO BID 07/11/13 09/21/18 09/20/18 History Clopidogrel [Plavix] 75 mg PO DAILY #30 tablet 03/06/15 09/21/18 09/20/18 Rx Simvastatin (Nf) [Zocor TAB] 20 mg PO QHS #30 tablet 03/06/15 09/21/18 09/20/18 Rx ISOSORBIDE MONOnitrate [Imdur ER] 30 mg PO DAILY 08/20/16 09/21/18 09/20/18 History Lumigan 0.01% 1 drops OU QHS 08/20/16 09/21/18 06/25/17 History atenoloL [Tenormin] 25 mg PO DAILY 08/20/16 09/21/18 09/20/18 History traZODone [Desyrel] 100 mg PO QHS 08/20/16 09/21/18 09/20/18 History Cholecalciferol (Vitamin D3) 5,000 unit PO DAILY 06/17/17 09/21/18 09/20/18 History [Vitamin D3] Clotrimazole 1% [Lotrimin] 1 applic TP BID 06/17/17 09/21/18 06/25/17 History Losartan-Hctz 50-12.5 mg Tab 1 tab PO DAILY 09/21/18 09/21/18 09/20/18 History amLODIPine 5 mg PO DAILY 09/21/18 09/21/18 09/20/18 History oxyCODONE /ACETAMINOPHEN 10 mg PO PRN 09/21/18 09/21/18 Unknown History Ondansetron [Zofran Odt] 4 mg PO Q8HR PRN #14 tab.rapdis 02/18/19 Unknown Rx Prednisone [predniSONE 10 mg 10 mg PO .TAPER #1 tab.ds.pk 02/18/19 Unknown Rx (6-Day Pack, 21 Tabs)] traMADoL [Ultram 50 MG tab] 50 mg PO Q4HR PRN #14 tablet 02/18/19 Unknown Rx Albuterol Sulfate [Proventil Hfa] 2 puff IH Q4H #1 hfa.aer.ad 08/13/19 Unknown Rx Azithromycin [Zithromax Z-TOVA] 1 pkg PO DAILY #1 tab 08/13/19 Unknown Rx ED Physical Exam - General Limitations: No Limitations ED Course Vital Signs 02/14/20 03:38 Temperature 98.0 F Pulse Rate 54 L Respiratory 16 Rate Blood Pressure 144/72 O2 Sat by Pulse 97 Oximetry ED Medical Decision Making - Medical Decision Making 74-year-old -Hungarian male presents to the emergency room for intermittent headaches x1 month. Patient states that he saw his doctor on Saturday and had his blood pressure medication adjusted but no improvement for his headache. Patient states that Tylenol does help and his last dose was 8 hours ago. Patient denies any nausea no vomiting no change in vision. Patient denies any weakness. No injury. Nothing makes it worse Tylenol makes it better. Patient does have extensive history of kidney disease CVA, GERD, [place], kidney stones, hepatitis C and high cholesterol. Patient is followed by Dr. Kaiden Aquino at [facility]. CT of head shows no acute abnormalities. Patient will be given a Fioricet pill. Patient is encouraged to follow back up with his primary care provider. Blood pressure is stable at 144/72. Critical care attestation.: If time is entered above; I have spent that time in minutes in the direct care of this critically ill patient, excluding procedure time. ED Disposition Clinical Impression: Headache Disposition: DC-01 TO HOME OR SELFCARE Is pt being admited?: No Does the pt Need Aspirin: No Condition: Stable Instructions: Acute Headache (ED) Additional Instructions: Continue with Tylenol and follow-up with Dr. Aquino. Encouraged to increase your water intake. Referrals: PRIMARY CARE, [Primary Care Provider] - 3-5 Days KAIDEN AQUINO MD [Referring] - 3-5 Days
== END 2020-02-14 05:50 | disposition home or self-care (01) ==
LOC: ED 03:34
DX: R51 Headache (principal); I10 Essential (primary) hypertension; K21.9 Gastro-esophageal reflux disease without esophagitis; M13.88 Other specified arthritis, other site; E78.00 Pure hypercholesterolemia, unspecified; I25.2 Old myocardial infarction; Z98.890 Other specified postprocedural states; Z90.49 Acquired absence of other specified parts of digestive tract; Z88.6 Allergy status to analgesic agent; Z79.899 Other long term (current) drug therapy
CPT/HCPCS: 70450; 99283

== ENCOUNTER 2020-10-02 13:17 | Emergency (ER) | payer MEDICARE ==
[2020-10-02 13:29] VITALS: BP 169/86
--- NOTE | 2020-10-02 13:34 | Event Note ---
ED Screening Note Date of service: 10/02/20 Time: 13:32 ED Screening Note: 75-year-old male presents to the ER today complaint of anterior chest pain. He states that started about a couple days ago. He states that the pain jumps from left to right chest. He reports "a little" shortness of breath. He also reports a cough. He denies any other symptoms. Medical history: Significant for tobacco use, hypertension, hyperlipidemia; he denies any history of coronary artery disease or [place] in the past. 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 He states that he does remember having a treadmill stress test where he does not recall how long ago. This initial assessment/diagnostic orders/clinical plan/treatment(s) is/are subject to change based on patients health status, clinical progression and re- assessment by fellow clinical providers in the ED. Further treatment and workup at subsequent clinical providers discretion. Patient/guardian urged not to elope from the ED as their condition may be serious if not clinically assessed and managed. Initial orders include: Chest pain order set
[2020-10-02 13:57] LABS: Basophils % (Auto) 0.6 % (0.0-1.8); Eosinophils # (Auto) 0.5 K/mm3 (0.0-0.4); Eosinophils % (Auto) 9.3 % (0.0-4.3); Hematocrit 39.9 % (35.5-45.6); Hemoglobin 13.8 gm/dl (11.8-15.2); Lymphocytes # (Auto) 1.8 K/mm3 (1.2-5.4); Lymphocytes % (Auto) 36.4 % (13.4-35.0); Mean Corpuscular HGB Conc 35 % (32-34); Mean Corpuscular Volume 106 fl (84-94); Monocytes # (Auto) 0.6 K/mm3 (0.0-0.8); Monocytes % (Auto) 11.7 % (0.0-7.3); Platelet Count 171 K/mm3 (140-440); Red Blood Count 3.76 M/mm3 (3.65-5.03); Red Cell Distribution Width 13.1 % (13.2-15.2)
[2020-10-02 14:10] LABS: INR 1.04 (0.87-1.13)
[2020-10-02 14:11] LABS: Partial Thromboplastin Time 33.2 Sec. (24.2-36.6)
--- NOTE | 2020-10-02 14:14 | XRay Report ---
CHEST 2 VIEWS INDICATION: Chest Pain. COMPARISON: 06/15/1990 FINDINGS: SUPPORT DEVICES: None. HEART: Within normal limits. LUNGS/PLEURA: Mild streaky right basilar airspace disease with otherwise clear lungs. No pneumothora x. ADDITIONAL FINDINGS: None. IMPRESSION: 1. Mild streaky right basilar airspace disease worrisome for evolving pneumonia. Signer Name: Francisco Vizcarra MD Signed: 10/02/2020 2:10 PM Workstation Name: [id number]
[2020-10-02 14:19] LABS: Alanine Aminotransferase 8 units/L (7-56); Albumin 3.7 g/dL (3.9-5); BUN/Creatinine Ratio 21; Blood Urea Nitrogen 17 mg/dL (9-20); Calcium 9.2 mg/dL (8.4-10.2); Hemolysis Index 7
== END 2020-10-02 15:00 | disposition left against medical advice (07) ==
LOC: ED 13:17
DX: R07.89 Other chest pain (principal); Z53.21 Procedure and treatment not carried out due to patient leaving prior to being seen by health care provider
CPT/HCPCS: 36415; 71046; 80053; 83690; 84484; 85025; 85610; 85730; 93005

== ENCOUNTER 2022-03-14 09:52 | Outpatient (CLI) | payer MEDICARE ==
--- NOTE | 2022-03-14 13:48 | XRay Report ---
CHEST 2 VIEWS INDICATION / CLINICAL INFORMATION: J15.9 UNSPECIFIED BACTERIAL PNEUMONIA. COMPARISON: 10/02/2020 FINDINGS: SUPPORT DEVICES: None. HEART / MEDIASTINUM: No significant abnormality. LUNGS / PLEURA: Stable mild right basilar peribronchial thickening. No acute pulmonary infiltrate or edema. No significant pleural effusion. No pneumothorax. ADDITIONAL FINDINGS: None IMPRESSION: 1. No acute chest process. Signer Name: Casper Mart MD Signed: 03/14/2022 1:44 PM Workstation Name: [email or web address]
== END 2022-03-14 09:53 | disposition home or self-care (01) ==
LOC: XRAY 09:52
PROVIDERS: ATTEND Internal Medicine
DX: J15.9 Unspecified bacterial pneumonia (principal); R91.8 Other nonspecific abnormal finding of lung field
CPT/HCPCS: 71046